=== PATIENT | female | born 1945 | race Two or more races ===

== ENCOUNTER 2025-06-05 21:46 | Inpatient (IN) | payer OTHER ==
[~2025-06-05] VITALS: Ht 149.9 cm; Wt 66.0 kg
--- NOTE | 2025-06-05 22:06 | ED.PDOC ---
HPI (NEURO) HPI Comments 80 year old female presents to the ED with a chief complaint of possible CVA onset today. Granddaughter states patient woke up around 06:00, around 11:00, she noticed patient began to be altered. Patient states she began experiencing Lt sided numbness/weakness, got worse throughout the day. About 30 minutes prior to ED arrival, granddaughter noticed patient had slurred speech, LT sided facial drooping, she was not able to walk normally, altered. PMHx HTN, DM, HLD. Denies fever, chills, nausea, vomiting, diarrhea, headache, chest pain. No other symptoms or modifying factors present at this time. Chief Complaint: Stroke Time Seen by MD: 21:55 Reviewed Notes: Medications, Allergies Information Source: Patient, Relative (GrandChild) Mode of Arrival: Ambulatory Severity: Moderate Timing: Hours Duration: Since onset Prehospital treatment: None Weakness Location: (L) Sided Numbness Location: (L) Sided Onset: At rest Circumstances: Spontaneous Symptoms: Weakness, Numbness, Slurred speech, Difficulty walking Before: Normal Associated Signs and Symptoms: Weakness, Numbness Past Medical History PAST MEDICAL HISTORY: DM, High Lipids, HTN Surgical History: Denies all surgeries PEPPER PICKER History: No Pertinent PEPPER PICKER History Family History Family History: Reviewed,noncontributory to illness, No family hx of Cancer, No family hx of DM, No family hx of Heart talita, No family hx of HTN, No family hx of Kidney talita, No family hx of Liver talita, No family hx of Lung talita, No family hx of Stroke Social History Smoker: Non-Smoker Alcohol: Denies ETOH Use Drugs: Denies Drug Use Lives In: Home Constitutional: denies: chills, diaphoresis, fatigue, fever, malaise, sweats, weakness, others EENTM: denies: blurred vision, double vision, ear bleeding, ear discharge, ear drainage, ear pain, ear ringing, eye pain, eye redness, hearing loss, mouth pain, mouth swelling, nasal discharge, nose bleeding, nose congestion, nose pain, photophobia, tearing, throat pain, throat swelling, voice changes, others Respiratory: denies: cough, hemoptysis, orthopnea, SOB at rest, shortness of breath, SOB with excertion, stridor, wheezing, others Cardiovascular: denies: chest pain, dizzy spells, diaphoresis, Dyspnea on exertion, edema, irregular heart beat, left arm pain, lightheadedness, palpitations, PND, syncope, others Gastrointestinal: denies: abdomen distended, abdominal pain, blood streaked bowels, constipated, diarrhea, dysphagia, difficulty swallowing, hematemesis, melena, nausea, poor appetite, poor fluid intake, rectal bleeding, rectal pain, vomiting, others Genitourinary: denies: abnormal vagina bleeding, burning, dyspareunia, dysuria, flank pain, frequency, hematuria, incontinence, pain, , vagina discharge, urgency, others Neurological: reports: left sided numbness, left sided weakness; denies: dizziness, fainting, headache, numbness, paresthesia, pre-existing deficit, right sided numbness, right sided weakness, seizure, speech problems, tingling, tremors, weakness, others Musculoskeletal: denies: back pain, gout, joint pain, joint swelling, muscle pain, muscle stiffness, neck pain, others Integumetry: denies: bruises, change in color, change in hair/nails, dryness, laceration, lesions, lumps, rash, wounds, others Allergic/Immunocompromised: denies: Difficulty Healing, Frequent Infections, Hives, Itching, others Hematologic/Lymphatic: denies: anemia, blood clots, easy bleeding, easy bruising, swollen glands, others Endocrine: denies: excessive hunger, excessive sweating, excessive thirst, excessive urination, flushing, intolerance to cold, intolerance to heat, unexplained weight gain, unexplained weight loss, others Psychiatric: denies: anxiety, bipolar disorder, depression, hopeless, panic disorder, schizophrenia, sleepless, suicidal, others All Other Systems: Reviewed and Negative Physical Exam General Appearance: Normal HEENT: Normal ENT Inspection, Pharynx Normal, TMs Normal Neck: Full Range of Motion, Non-Tender, Normal, Normal Inspection Respiratory: Chest Non-Tender, Lungs Clear, No Accessory Muscle Use, No R espiratory Distress, Normal Breath Sounds Cardiovascular: No Edema, No JVD, No Murmur, No Gallop, Normal Peripheral Pulses, Regular Rate/Rhythm Breast Exam: Deferred Gastrointestinal: No Organomegaly, Non Tender, No Pulsatile Mass, Normal Bowel Sounds, Soft Genitalia: Deferred Pelvic: Deferred Rectal: Deferred Extremities: No calf tenderness, Normal capillary refill, Normal inspection, Normal range of motion, Non-tender, No pedal edema Musculoskeletal : Apperance: Normal Neurologic: Alert, Other (LT sided weakness, drooping) Cerebellar Function: Normal Reflexes: Normal Skin: Dry, Normal Color, Warm Lymphatic: No Adenopathy Was a procedure done? Was a procedure done?: No Differential Diagnosis (SZ) Seizure: N/A CVA: CVA, Electrolyte Imbalance, Encephalopathy, Hypoxemia, SAH, TIA General Weakness: Anemia, CVA, Electrolyte imbalance, Hypotension, Hypovolemia Headache: N/A X-Ray, Labs, Meds, VS Vital Signs Date Time Temp Pulse Resp B/P (MAP) Pulse Ox O2 Delivery O2 Flow Rate FiO2 06/05/25 22:55 73 06/05/25 21:50 99.7 76 16 133/64 95 99.7 Lab Test 06/05/25 22:32 06/05/25 21:17 Range/Units Troponin I High Sensitivity 5 6 </=34 ng/L White Blood Count 11.3 H 4.4-10.8 10^3/uL Red Blood Count 4.49 4.0-5.20 10^6/uL Hemoglobin 13.1 12.2-16.2 g/dL Hematocrit 37.5 36.0-46.0 % Mean Corpuscular Volume 83.6 80.0-100.0 fL Mean Corpuscular Hemoglobin 29.1 28.0-32.0 pg Mean Corpuscular Hemoglobin Concent 34.8 32.0-36.0 g/dL Red Cell Distribution Width 13.0 11.8-14.3 % Platelet Count 222 140-450 10^3/uL Mean Platelet Volume 8.0 6.9-10.8 fL Neutrophils (%) (Auto) 67.5 37.0-80.0 % Lymphocytes (%) (Auto) 20.9 10.0-50.0 % Monocytes (%) (Auto) 6.9 0.0-12.0 % Eosinophils (%) (Auto) 3.5 0.0-7.0 % Basophils (%) (Auto) 1.2 0.0-2.0 % Neutrophils # (Auto) 7.6 1.6-8.6 10 ^3/uL Lymphocytes # (Auto) 2.4 0.4-5.4 10 ^3/uL Monocytes # (Auto) 0.8 0-1.3 10 ^3/uL Eosinophils # (Auto) 0.4 0-0.8 10 ^3/uL Basophils # (Auto) 0.1 0-0.2 10 ^3/uL Nucleated Red Blood Cells 0.1 % Prothrombin Time 10.2 9.3-11.8 sec Prothrombin Time INR 0.96 0.9-1.15 Activated Partial Thromboplast Time 24.7 24.5-34.5 SEC Sodium Level 143 136-145 mmol/L Potassium Level 3.8 3.5-5.1 mmol/L Chloride Level 108 H 98-107 mmol/L Carbon Dioxide Level 27 20-31 mmol/L Anion Gap 8 5-15 Blood Urea Nitrogen 22 9-23 mg/dL Creatinine 0.97 0.550-1.02 mg/dL Glomerular Filtration Rate Calc 59 >90 mL/min BUN/Creatinine Ratio 22.7 H 10.0-20.0 Serum Glucose 147 H 74-106 mg/dL Calcium Level 8.5 L 8.7-10.4 mg/dL Magnesium Level 1.8 1.6-2.6 mg/dL Total Bilirubin 1.1 H 0.2-1.0 mg/dL Aspartate Amino Transferase (AST) 25 13-40 U/L Alanine Aminotransferase (ALT) 23 7-40 U/L Alkaline Phosphatase 109 46-116 U/L B-Type Natriuretic Peptide 51.32 0-100 pg/mL Total Protein 6.0 5.7-8.2 g/dL Albumin 3.8 3.2-4.8 g/dL Time of 1ST Reevaluation: 22:25 Reevaluation 1ST: Unchanged Patient Education/Counseling: Diagnosis, Treatment, Prognosis Family Education/Counseling: Diagnosis, Treatment, Prognosis Departure 1 Departure Time of Disposition: 00:46 (Patient presented with left-sided weakness and slurred speech. Patient is out of the window for intervention. CT head shows an old stroke. We will admit patient for further workup and expert consulta tion) Impression: Primary Impression: Slurred speech Additional Impressions: Facial droop Left-sided weakness Disposition: ADMITTED INPATIENT Admit to: Tele Condition: Guarded Critical Care Note Critical Care Time?: Yes Critical care comment: Concern for CVA Authorized and Performed by: Anila Herrera MD Total critical care time: Approximately 37 minutes Due to a high probability of clinically significant, life threatening de terioration, the patient required my highest level of preparedness to intervene emergently and I personally spent this critical care time directly and personally managing the patient. This critical care time included obtaining a history; examining the patient; pulse oximetry; ordering and review of studies; arranging urgent treatment with development of a management plan; evaluation of patient's response to treatment; frequent reassessment; and, discussions with other providers. This critical care time was performed to assess and manage the high probability of imminent, life-threatening deterioration that could result in multi-organ failure. It was exclusive of separately billable procedures and treating other patients and teaching time. Please see my other sections and the rest of the note for further information on patient assessment and treatment. Stability Stability form required: No I personally scribed for ANILA HERRERA MD ([email or web address]) on 06/05/25 at 22:06. Electronically submitted by Kiana Tran ([email or web address]). ANILA HERRERA MD Jun 05, 2025 22:06
[2025-06-05 22:27] LABS: Hematocrit 37.5 % (36.0-46.0); Hemoglobin 13.1 g/dL (12.2-16.2); Mean Corpuscular Hemoglobin 29.1 pg (28.0-32.0); Mean Corpuscular Volume 83.6 fL (80.0-100.0); Nucleated Red Blood Cells % 0.1 %
[2025-06-05 22:41] LABS: INR 0.96 (0.9-1.15); Partial Thromboplastin Time 24.7 SEC (24.5-34.5); Prothrombin Time 10.2 sec (9.3-11.8)
[2025-06-05 22:45] LABS: Alanine Aminotransferase 23 U/L (7-40); Albumin 3.8 g/dL (3.2-4.8); Alkaline Phosphatase 109 U/L (46-116); Anion Gap 8 (5-15); BUN/Creatinine Ratio 22.7 (10.0-20.0); Blood Urea Nitrogen 22 mg/dL (9-23); Carbon Dioxide 27 mmol/L (20-31); Magnesium 1.8 mg/dL (1.6-2.6); Potassium 3.8 mmol/L (3.5-5.1); Sodium 143 mmol/L (136-145); Total Protein 6.0 g/dL (5.7-8.2)
[2025-06-05 22:46] LABS: Bilirubin, Total 1.1 mg/dL (0.2-1.0)
--- NOTE | 2025-06-05 22:51 | DVH ---
EXAM: XY CHEST XRAY 1 VIEW CLINICAL HISTORY: weakness TECHNIQUE: Single AP view of the chest WID: COMPARISON: None FINDINGS: Lines and tubes: Surgical clips project over the left lateral chest wall. Chest: Normal-sized heart. Calcified plaque projects over the aortic arch. No pleural effusion or pneumothorax. Linear opacity in the left lung base which could reflect atelect asis or scarring. The osseous structures are grossly intact. Degenerative changes of the bilateral shoulders. IMPRESSION: 1. No acute cardiopulmonary abnormality.
--- NOTE | 2025-06-05 22:57 | DVH ---
EXAM: CT STROKE CTH INDICATION: facial droop and weakness TECHNIQUE: CT of the head without intravenous contrast. Radiation Dose Information: CT Dose: CTDI volume is 52.58 mGy. Dose-length product is 1.71 mGy*cm The dose indicators for CT are the volume Computed Tomography (CT) Dose Index (CTDIvol) and the Dose Length Product (DLP), and are measured in units of mGy and mGy-cm, respectively. These indicators are not patient dose, but values generated from the CT scanner acquisition factors. The report includes radiation exposure data for exposures received during this examination. COMPARISON: None FINDINGS: There is no evidence of acute intracranial hemorrhage, extra-axial collection, mass effect, midline s hift, herniation or hydrocephalus. There is a 6 7 mm hypodense area in the medulla on the left series 2 image 19. This may represent a s mall infarct. Small areas of decreased attenuation deep white matter in the parietal lobe on the left The ventricles, sulci and cisterns are age appropriate. The conner-white differentiation is intact. Patchy periventricular and subcortical white matter hypoattenuation is nonspecific but may be related to small vessel ischemic disease. The visualized paranasal sinuses and mastoid air cells are clear. The surrounding soft tissues and osseous structures are unremarkable. IMPRESSION: 1. 6-7 mm old infarct in the brainstem on the left series 2 image 19. 2. No acute intracranial hemorrhage. 3. No findings territorial ischemia.
[2025-06-05 22:59] LABS: Calcium 8.5 mg/dL (8.7-10.4); Chloride 108 mmol/L (98-107); Glucose 147 mg/dL (74-106)
--- NOTE | 2025-06-06 06:10 | ECG ---
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
[2025-06-06] MEDS ORDERED: NITROGLYCERIN 0.4 MG SL TAB SL PRN (06:15)
[2025-06-06] MEDS ORDERED: MORPHINE SULFATE INJ 2 MG/ml SYRG IV PRN (06:15)
[2025-06-06] MEDS ORDERED: DEXTROSE (50%) 50ML SYRG IV PRN (06:30)
--- NOTE | 2025-06-06 06:30 | DVHHP2 ---
Admitting Diagnosis: CVA History of Present Illness HPI 80 y.o. female with DM, HTn, obesity was brought to the ER c/o left face droop and left body numbness and weakness, difficulty ambulating, altered mentation, slurred speech that started in AM and worsened later, urging the patient to come to the ER. Past Medical History Cardiac: HTN, Hyperlipidemia Endocrine: NIDDM Review of Systems Psychiatric: Change in speech, Numbness, Weakness H&P Exam Vital Signs Vital Signs Date Time Temp Pulse Resp B/P (MAP) Pulse Ox O2 Delivery O2 Flow Rate FiO2 06/06/25 01:01 63 06/05/25 21:50 99.7 16 133/64 95 99.7 General Appeara: Obese Head Exam: Normal inspection Neck Exam: Non-tender Eye Exam: bilateral eye PERRL, bilateral eye EOMI Pulmonary/Respiratory: Lungs clear Cardiovascular/Chest: Regular rate Tendon/ Neuro: Motor deficit Motor/Sensory: Weak motor strength LUE, Weak motor strength LLE Neuro/Mental St: Alert SEPSIS Sepsis Screen Date sepsis recognized/suspect: Jun 05, 2025 Time Sepsis recognized/suspect: 2156 Recent Procedure: No On Antibiotic Therapy: No Respiratory Rate >20: No Heart Rate >90: No Temp<36 C (96.8 F) or >38.3 C: No SBP <90 or MAP <65 mmHG: No New Acute Mental Status Change: Yes Is the patient on CPAP, BIPAP,: No Physician Orders Admit (06/06/25 06:09) Complete Blood Count (06/07/25 06:00) Comprehensive Metabolic Panel (06/07/25 06:00) Urinalysis (06/06/25 06:09) Echo 2d Mode Cardiac Dop (06/06/25 06:09) Nitroglycerin Sublingual (Ntrostat Subli (06/06/25 06:15) Morphine Sulfate Injection (06/06/25 06:15) Stat Ekg For Chest Pain (06/06/25 06:09) Notify Of Changes From Base (06/06/25 06:09) Qa Specialist For 24 Hours (06/06/25 06:09) Emergency Dysrhythmia Protocol (06/06/25 06:09) Rhythm Strips Once Every Shift (06/06/25 06:09) Oxygen By Nasal Cannula (06/06/25 06:09) * Neurology Consult (06/06/25 06:16) Brain Head Wo Contrast (06/06/25 06:17) Vital Signs Date Time Temp Pulse Resp B/P (MAP) Pulse Ox O2 Delivery O2 Flow Rate FiO2 06/06/25 01:01 63 06/05/25 22:55 73 Laboratory Tests Test 06/05/25 21:17 White Blood Count 11.3 10^3/uL (4.4-10.8) H Labs/Xrays Labs Test 06/05/25 22:32 06/05/25 21:17 Range/Units Troponin I High Sensitivity 5 </=34 ng/L White Blood Count 11.3 H 4.4-10.8 10^3/uL Red Blood Count 4.49 4.0-5.20 10^6/uL Hemoglobin 13.1 12.2-16.2 g/dL Hematocrit 37.5 36.0-46.0 % Mean Corpuscular Volume 83.6 80.0-100.0 fL Mean Corpuscular Hemoglobin 29.1 28.0-32.0 pg Mean Corpuscular Hemoglobin Concent 34.8 32.0-36.0 g/dL Red Cell Distribution Width 13.0 11.8-14.3 % Platelet Count 222 140-450 10^3/uL Mean Platelet Volume 8.0 6.9-10.8 fL Neutrophils (%) (Auto) 67.5 37.0-80.0 % Lymphocytes (%) (Auto) 20.9 10.0-50.0 % Monocytes (%) (Auto) 6.9 0.0-12.0 % Eosinophils (%) (Auto) 3.5 0.0-7.0 % Basophils (%) (Auto) 1.2 0.0-2.0 % Neutrophils # (Auto) 7.6 1.6-8.6 10 ^3/uL Lymphocytes # (Auto) 2.4 0.4-5.4 10 ^3/uL Monocytes # (Auto) 0.8 0-1.3 10 ^3/uL Eosinophils # (Auto) 0.4 0-0.8 10 ^3/uL Basophils # (Auto) 0.1 0-0.2 10 ^3/uL Nucleated Red Blood Cells 0.1 % Prothrombin Time 10.2 9.3-11.8 sec Prothrombin Time INR 0.96 0.9-1.15 Activated Partial Thromboplast Time 24.7 24.5-34.5 SEC Sodium Level 143 136-145 mmol/L Potassium Level 3.8 3.5-5.1 mmol/L Chloride Level 108 H 98-107 mmol/L Carbon Dioxide Level 27 20-31 mmol/L Anion Gap 8 5-15 Blood Urea Nitrogen 22 9-23 mg/dL Creatinine 0.97 0.550-1.02 mg/dL Glomerular Filtration Rate Calc 59 >90 mL/min BUN/Creatinine Ratio 22.7 H 10.0-20.0 Serum Glucose 147 H 74-106 mg/dL Calcium Level 8.5 L 8.7-10.4 mg/dL Magnesium Level 1.8 1.6-2.6 mg/dL Total Bilirubin 1.1 H 0.2-1.0 mg/dL Aspartate Amino Transferase (AST) 25 13-40 U/L Alanine Aminotransferase (ALT) 23 7-40 U/L Alkaline Phosphatase 109 46-116 U/L B-Type Natriuretic Peptide 51.32 0-100 pg/mL Total Protein 6.0 5.7-8.2 g/dL Albumin 3.8 3.2-4.8 g/dL Assessment/Plan Problem List: (1) CVA (cerebral vascular accident) (2) DM (diabetes mellitus) (3) HTN (hypertension) Plan MRI, neuro consult, ECHO, carotid doppler Plan discussed with: Patient, Daughter JULES ROMANO MD Jun 06, 2025 06:30
--- NOTE | 2025-06-06 06:51 | ECG ---
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
[2025-06-06] MEDS: ACCU-CHEK COMFORT CURVE STRIP VI SCH (07:48)
[2025-06-06] MEDS: InsuLIN REG 1unit/0.01ml Soln (100units/ml) SC SCH (07:53)
[2025-06-06 08:49] LABS: Urine Amorphous Crystal FEW /hpf (None Seen); Urine Protein, UAD Negative (Negative)
[2025-06-06 08:52] VITALS: O2SAT 96
--- NOTE | 2025-06-06 08:56 | DVH ---
Carotid Duplex Clinical History: CVA Comparison: None Technique: Duplex Doppler evaluation of the extracranial carotid and vertebral arteries including color Doppler and spectral/pulsed waveform analysis was performed. Findings: RIGHT SIDE: The peak systolic velocities are 79 cm/s in the CCA, 74 cm/s in the ICA. The ICA/CCA ratio is 0.9. The external carotid artery is patent with peak systolic velocity of 111 cm/s proximally. There is appropriate antegrade flow in the right vertebral artery. LEFT SIDE: The peak systolic velocities are 132 cm/s in the CCA, 145 cm/s in the ICA. The ICA/CCA ratio is 1.1. The external carotid artery is patent with peak systolic velocity of 122 cm/s proximally. There is appropriate antegrade flow in the left vertebral artery. IMPRESSION: Less than 50% stenosis of the right carotid artery system based on peak systolic velocity criteria an d presence of atheromatous plaque. 50-69% stenosis of the left internal carotid artery system based on peak systolic velocity criteria a nd presence of atherosclerotic plaque. Reference: Radiology 2003; 229:340-346 Normal ICA PSV is <125 cm/sec and no plaque or intimal thickening is visible sonographically addition al criteria include ICA/CCA PSV ratio <2.0 and ICA EDV <40 cm/sec <50% ICA stenosis ICA PSV is <125 cm/sec and plaque or intimal thickening is visible sonographically additional criteria include ICA/CCA PSV ratio <2.0 and ICA EDV <40 cm/sec 50-69% ICA stenosis ICA PSV is 125-230 cm/sec and plaque is visible sonographically additional criter ia include ICA/CCA PSV ratio of 2.0-4.0 and ICA EDV of 40-100 cm/sec 70% ICA stenosis but less than near occlusion ICA PSV is >230 cm/sec and visible plaque and luminal narrowing are seen at conner-scale and color Doppler ultrasound (the higher the Doppler parameters lie above the threshold of 230 cm/sec, the greater the likelihood of severe disease) additional criteria include ICA/CCA PSV ratio >4 and ICA EDV >100 cm/sec
[2025-06-06 09:00] VITALS: BP 130/70; PULSE 60; RESP 19; TEMP 97.7; O2SAT 99
--- NOTE | 2025-06-06 11:24 | DVH ---
EXAMINATION: MRI BRAIN HEAD WO CONTRAST INDICATION: CVA COMPARISON: CT scan of the head dated 06/05/25 TECHNIQUE: Multiplanar, multisequence magnetic resonance imaging of the brain was performed without the use of i ntravenous contrast. FINDINGS: No evidence of acute infarct. There is a chronic lacunar infarct in the kim. No intracranial hemorrh age. No mass effect. There is periventricular/deep white matter T2/FLAIR hyperintensity is nonspecific, but most commonly associated with chronic microvascular disease. The ventricles and sulci are normal in size for age. Clear basal cisterns. Flow voids in the major intracranial vessels are maintained. No abnormality of the orbits. Paranasal sinuses and mastoid air cells are clear. No abnormality of the visualized osseous structures and extracranial soft tissues. IMPRESSION: 1. No acute infarct, intracranial hemorrhage, mass effect, or hydrocephalus. HS:Y
[2025-06-06 13:00] VITALS: BP 123/54; PULSE 64; RESP 21; TEMP 97.2; O2SAT 98
[2025-06-06] MEDS: ATORVASTATIN 20 MG TAB PO SCH (15:57)
[2025-06-06 17:12] VITALS: BP 118/59; PULSE 66; RESP 17; TEMP 97.8; O2SAT 97
--- NOTE | 2025-06-06 20:53 | DVHINCON2 ---
Date of service: Jun 06, [address] Sahni Reason for Consultation CVA History of Present Illness Ms. Rao is a 80 years old right-handed female with a history of hypertension, diabetes, dyslipidemia, left breast cancer, she was brought to the [facility] [place] with a chief company of possible stroke onset on 06/05/2025. At this time, he is awake, oriented x3, she provided the following history In the morning on 06/05/2025, she developed confusion, slurred speech, and imbalance gait. She has paresthesia in the left upper extremity after her breast cancer surgery, she denies new paresthesia or weakness on 06/05/2025 but ER note mentioned the patient has a left facial drooping, and the left arm numbness She had stroke in 5-10 years ago which caused left-sided weakness, the patient was seen in the [facility] [place], and she was said to have stroke, she has a good recovery, she does not remember taking aspirin or any blood thinner for stroke prevention External reconciled medication includes Lipitor 20 mg daily, She denies a history of seizure She reports difficulty with memory Urinalysis, 06/06/2025: WBC: 5, urine leukocyte esterase: Trace WBC/HB/PLT/MCV, 06/05/2025: 11.3/13.1/222/83.6 TBI/AST/ALT/AP, 06/05/2025: 1.1/25/23/109 Carotid doctor, 06/06/2025: Less than 50% stenosis of the right carotid artery system based on peak systolic velocity criteria and presence of atheromatous plaque. 50-69% stenosis of the left internal carotid artery system based on peak systolic velocity criteria and presence of atherosclerotic plaque CT head, 06/05/2025: 1. 6-7 mm old infarct in the brainstem on the left series 2 image 19. 2. No acute intracranial hemorrhage. 3. No findings territorial ischemia MRI head, 06/06/2025: No acute infarct, intracranial hemorrhage, mass effect, or hydrocephalus. (There is a chronic lacunar infarct in the kim) Past Medical History Hypertension, diabetes, dyslipidemia, left breast cancer Past Surgical History Breast cancer resection, , appendectomy, bilateral Achilles tendon surgery, Family History: Arthritis G8 MOTHER Cardiovascular disease G8 MOTHER Diabetes mellitus G8 FATHER Family History Arthritis, diabetes, heart disease, mother had dementia She was tobacco smoke, but no history of drug/alcohol abuse As above, the other systems are negative Social History She was tobacco smoke, but no history of drug/alcohol abuse Allergies: Coded Allergies: NO KNOWN ALLERGIES (Unverified , 06/05/25) Current Medications Current Medications Medications (Trade) Dose Ordered Sig/Donaldo Route PRN Reason Start Time Stop Time Status Last Admin Nitroglycerin (Ntrostat Sublingual) 0.4 mg Q5MINP PRN SL FOR CHEST PAIN 06/06/25 06:15 Morphine Sulfate 2 mg Q30M PRN IV FOR CHEST PAIN 06/06/25 06:15 Diagnostic Test (Pha) (Accu-Chek Comfort Curve T) 1 strip ACHS 06/06/25 07:00 06/06/25 16:46 Insulin Human Regular (InsuLIN R) ACHS SC 06/06/25 07:00 Dextrose 50 ml UD PRN IV Blood Sugar LESS THAN 60 06/06/25 06:30 Atorvastatin Calcium (Lipitor) 80 mg DAILY PO 06/06/25 14:15 06/06/25 15:57 Aspirin 81 mg DAILY PO 06/06/25 14:15 06/06/25 15:57 Review of Systems As above, the other systems are negative Vital Signs Vital Signs Date Time Temp Pulse Resp B/P (MAP) Pulse Ox O2 Delivery O2 Flow Rate FiO2 06/06/25 17:12 97.8 66 17 118/59 (78) 97 97.8 06/06/25 08:52 Room Air* 0 21 Physical Exam GENERAL EXAM: General: the patient is well developed and nourished. No acute distress. HEENT: Normocephalic, neck is supple, no carotid bruits. No mass RESPIRATORY: Normal respiratory effort with symmetrical lung expansion. Lungs clear to auscultation. CARDIOVASCULAR: Regular rate and rhythm with no murmurs. S1, S2. ABDOMEN: Soft, nontender, normal bowel sound NEUROLOGICAL: MENTAL STATUS: Awake and alert. Oriented to person, place, time and general circumstances. Able to give personal history. SPEECH, LANGUAGE, HIGHER CORTICAL FUNCTION: no aphasia or dysathria. CRANIAL NERVES: #2: Intact visual dela cruz to confrontation. The optic discs were sharp. Retinal background was uniformly pink in appearance. There was no hemorrhages or exudates. #3,4,6: Pupils are equal, round and reactive. EOMs full and conjugate. Mild bilateral gaze evoked nystagmus. #5: Facial sensation intact in all three divisions bilaterally. Mandibular strength intact. #7: Facial muscles symmetrical and strength intact. #8: Hearing grossly normal to voice. #9,10: Uvula and soft palate rise in the midline. Swallow and voice are normal. #11: Trapezius and sternomastoid strength intact bilaterally. #12: Tongue midline. No fasciculations or atrophy. SENSATION: Sensation to touch and pinprick is normal. MOTOR: Normal tone in the upper and lower extremity. Normal muscle bulk. No fasciculations. No abnormal movements or posturing. Muscle strength of the major groups in the upper extremities is 5/5. Muscle strength of the major groups in the lower extremities is 5/5. REFLEXES: Deep tendon reflexes normal and symmetrical. No pathological reflexes. CEREBELLAR/COORDINATION: Finger to nose and heel to gomez are normal bilaterally. GAIT/STATION: deferred. Labs/Diagnostic Data Labs Test 06/06/25 16:37 06/06/25 08:08 06/05/25 22:32 06/05/25 21:17 Range/Units POC Glucose 134 H 70-106 mg/dl Urine Color Yellow Yellow Urine Clarity Clear Clear Urine pH 8.0 5.0-9.0 Urine Specific [place] 1.021 1.001-1.035 Urine Protein Negative Negative Urine Ketones Negative Negative Urine Blood Negative Negative /uL Urine Nitrite Negative Negative Urine Bilirubin Negative Negative Urine Urobilinogen 12 H Negative mg/dL Urine Leukocyte Esterase Trace Negative /uL Urine RBC 1 0 - 4 /hpf Urine Microscopic WBC 5 0-5 /HPF Urine Squamous Epithelial Cells Few <5 /hpf Urine Amorphous Crystals Few None Seen /hpf Urine Bacteria None seen None Seen /hpf Urine Glucose 3+ H Normal mg/dL Troponin I High Sensitivity 5 </=34 ng/L White Blood Count 11.3 H 4.4-10.8 10^3/uL Red Blood Count 4.49 4.0-5.20 10^6/uL Hemoglobin 13.1 12.2-16.2 g/dL Hematocrit 37.5 36.0-46.0 % Mean Corpuscular Volume 83.6 80.0-100.0 fL Mean Corpuscular Hemoglobin 29.1 28.0-32.0 pg Mean Corpuscular Hemoglobin Concent 34.8 32.0-36.0 g/dL Red Cell Distribution Width 13.0 11.8-14.3 % Platelet Count 222 140-450 10^3/uL Mean Platelet Volume 8.0 6.9-10.8 fL Neutrophils (%) (Auto) 67.5 37.0-80.0 % Lymphocytes (%) (Auto) 20.9 10.0-50.0 % Monocytes (%) (Auto) 6.9 0.0-12.0 % Eosinophils (%) (Auto) 3.5 0.0-7.0 % Basophils (%) (Auto) 1.2 0.0-2.0 % Neutrophils # (Auto) 7.6 1.6-8.6 10 ^3/uL Lymphocytes # (Auto) 2.4 0.4-5.4 10 ^3/uL Monocytes # (Auto) 0.8 0-1.3 10 ^3/uL Eosinophils # (Auto) 0.4 0-0.8 10 ^3/uL Basophils # (Auto) 0.1 0-0.2 10 ^3/uL Nucleated Red Blood Cells 0.1 % Prothrombin Time 10.2 9.3-11.8 sec Prothrombin Time INR 0.96 0.9-1.15 Activated Partial Thromboplast Time 24.7 24.5-34.5 SEC Sodium Level 143 136-145 mmol/L Potassium Level 3.8 3.5-5.1 mmol/L Chloride Level 108 H 98-107 mmol/L Carbon Dioxide Level 27 20-31 mmol/L Anion Gap 8 5-15 Blood Urea Nitrogen 22 9-23 mg/dL Creatinine 0.97 0.550-1.02 mg/dL Glomerular Filtration Rate Calc 59 >90 mL/min BUN/Creatinine Ratio 22.7 H 10.0-20.0 Serum Glucose 147 H 74-106 mg/dL Calcium Level 8.5 L 8.7-10.4 mg/dL Magnesium Level 1.8 1.6-2.6 mg/dL Total Bilirubin 1.1 H 0.2-1.0 mg/dL Aspartate Amino Transferase (AST) 25 13-40 U/L Alanine Aminotransferase (ALT) 23 7-40 U/L Alkaline Phosphatase 109 46-116 U/L B-Type Natriuretic Peptide 51.32 0-100 pg/mL Total Protein 6.0 5.7-8.2 g/dL Albumin 3.8 3.2-4.8 g/dL Assessment Altered mental status, confusion, slurred speech ? TIA ? Partial complex seizure Chronic stroke with good recovery Self reports memory difficulty Plan/Recommendation Monitoring Supportive treatment Telemetry Vitamin B12, folic acid, TSH EEG Lipitor profile Echocardiogram Carotid Doppler Aspirin 81 mg daily Lipitor 80 mg daily Keep mentally and physically active More recommendation per clinical course This medical document was created using an electronic medical record system with [employer] dictation system. Although this document has been carefully reviewed, there may still be some phonetic and typographical errors. These areas are purely typographical due to imperfections of the software programs, and do not reflect any compromise in the patient's medical care. Plan discussed with: Patient, Other JANNET SAN MD Jun 06, 2025 20:53
[2025-06-06 20:55] VITALS: BP 93/36; PULSE 73; RESP 20; TEMP 98.2; O2SAT 95
[2025-06-06 21:00] VITALS: BP 124/57; PULSE 74; RESP 18; TEMP 97.9; O2SAT 95
[2025-06-07 01:00] VITALS: BP 124/68; PULSE 73; RESP 20; TEMP 98.3; O2SAT 95
[2025-06-07 05:00] VITALS: BP 112/63; PULSE 66; RESP 20; TEMP 98.2; O2SAT 95
[2025-06-07 06:20] LABS: Hematocrit 38.3 % (36.0-46.0); Hemoglobin 13.1 g/dL (12.2-16.2); Mean Corpuscular Hemoglobin 28.8 pg (28.0-32.0); Mean Corpuscular Volume 84.5 fL (80.0-100.0); Nucleated Red Blood Cells % 0.1 %
[2025-06-07 06:41] LABS: Free T4 (Free Thyroxine) 1.51 ng/dL (0.89-1.76)
[2025-06-07 06:42] LABS: Alanine Aminotransferase 21 U/L (7-40); Alkaline Phosphatase 102 U/L (46-116); Anion Gap 9 (5-15); BUN/Creatinine Ratio 14.9 (10.0-20.0); Blood Urea Nitrogen 13 mg/dL (9-23); Carbon Dioxide 24 mmol/L (20-31); Potassium 4.1 mmol/L (3.5-5.1); Sodium 141 mmol/L (136-145)
[2025-06-07 06:43] LABS: Total Protein 5.9 g/dL (5.7-8.2)
[2025-06-07 06:44] LABS: Albumin 3.8 g/dL (3.2-4.8); Bilirubin, Total 1.0 mg/dL (0.2-1.0)
[2025-06-07 06:46] LABS: Calcium 8.5 mg/dL (8.7-10.4); Chloride 108 mmol/L (98-107); Glucose 147 mg/dL (74-106)
[2025-06-07 07:06] LABS: Triglycerides 97 mg/dL (< 150)
[2025-06-07 07:08] LABS: Cholesterol 111 mg/dL (< 200); HDL Cholesterol 56 mg/dL (40-59)
[2025-06-07 09:00] VITALS: BP 127/68; PULSE 71; RESP 17; TEMP 98.4; O2SAT 93
--- NOTE | 2025-06-07 11:40 | DVHPN2 ---
Progress Note - Dictate Date Seen: Jun 07, 2025 Medical Necessity Reason Pt with a Central, PICC or Fol: No Subjective Ms. Rao is a 80 years old right-handed female with a history of hypertension, diabetes, dyslipidemia, left breast cancer, she was brought to the [facility] with a chief company of possible stroke onset on 06/05/2025. Patient was seen examined, doing fine, no new problems The case was discussed with Dr. Sahni, I recommended ASA 81mg Qd, Lipitor 20mg Qd, ok to d/c if TTE is fine Urinalysis, 06/06/2025: WBC: 5, urine leukocyte esterase: Trace WBC/HB/PLT/MCV, 06/05/2025: 11.3/13.1/222/83.6 TBI/AST/ALT/AP, 06/05/2025: 1.1/25/23/109 TG/HDL/LDL/HDL, 06/07/2025: 97/111/42/56 Vitamin B12, 06/2025:316 Folic acid, 06/07/2025: 20.73 TSH, 06/07/2025: 0.01 FT4, 06/07/2025: 1.51 Carotid doctor, 06/06/2025: Less than 50% stenosis of the right carotid artery system based on peak systolic velocity criteria and presence of atheromatous plaque. 50-69% stenosis of the left internal carotid artery system based on peak systolic velocity criteria and presence of atherosclerotic plaque CT head, 06/05/2025: 1. 6-7 mm old infarct in the brainstem on the left series 2 image 19. 2. No acute intracranial hemorrhage. 3. No findings territorial ischemia MRI head, 06/06/2025: No acute infarct, intracranial hemorrhage, mass effect, or hydrocephalus. (There is a chronic lacunar infarct in the kim) vital signs Vital Sign Date Time Temp Pulse Resp B/P (MAP) Pulse Ox O2 Delivery O2 Flow Rate FiO2 06/07/25 09:00 98.4 71 17 127/68 (87) 93 98.4 06/07/25 08:00 Room Air* 0 21 medications Current Medications Medications Dose Ordered Sig/Donaldo Route Start Time Stop Time Status Last Admin Dose Admin Nitroglycerin 0.4 mg Q5MINP PRN SL 06/06/25 06:15 Morphine Sulfate 2 mg Q30M PRN IV 06/06/25 06:15 Diagnostic Test (Pha) 1 strip ACHS 06/06/25 07:00 06/07/25 05:49 1 STRIP Insulin Human Regular ACHS SC 06/06/25 07:00 06/07/25 05:49 2 UNITS Dextrose 50 ml UD PRN IV 06/06/25 06:30 Atorvastatin Calcium 80 mg DAILY PO 06/06/25 14:15 06/07/25 08:48 80 MG Aspirin 81 mg DAILY PO 06/06/25 14:15 06/07/25 08:47 81 MG objective General: the patient is well developed and nourished. No acute distress. MENTAL STATUS: Awake and alert. Oriented to person, place, time and general circumstances. Able to give personal history. SPEECH, LANGUAGE, HIGHER CORTICAL FUNCTION: no aphasia or dysathria. CRANIAL NERVES: Pupils are equal, round and reactive. EOMs full and conjugate. No nystagmus. Facial sensation intact in all three divisions bilaterally. Mandibular strength intact. Facial muscles symmetrical and strength intact. SENSATION: Sensation to touch and pinprick is normal. MOTOR: Normal tone in the upper and lower extremity. Normal muscle bulk. No fasciculations. No abnormal movements or posturing. Muscle strength of the major groups in the extremities is 5/5. REFLEXES: Deep tendon reflexes normal and symmetrical. No pathological reflexes. CEREBELLAR/COORDINATION: Finger to nose and heel to gomez are normal bilaterally. GAIT/STATION: deferred. laboratory and microbiology Laboratory Tests 06/07/25 05:21 Test 06/07/25 05:21 Range/Units Serum Glucose 147 H 74-106 mg/dL Problem List Altered mental status, confusion, slurred speech ? TIA ? Partial complex seizure Chronic stroke with good recovery Self reports memory difficulty Assessment/Plan Monitoring Supportive treatment Telemetry Echocardiogram Aspirin 81 mg daily Lipitor 20 mg daily Keep mentally and physically active More recommendation per clinical course This medical document was created using an electronic medical record system with [employer] dictation system. Although this document has been carefully reviewed, there may still be some phonetic and typographical errors. These areas are purely typographical due to imperfections of the software programs, and do not reflect any compromise in the patient's medical care. Prognosis poor Plan discussed with: Other JANNET SAN MD Jun 07, 2025 11:40
[2025-06-07] MEDS ORDERED: LORazepam 0.5 MG TAB PO ONE (11:45)
[2025-06-07] MEDS ORDERED: PRED20TA2 PO (12:10)
[2025-06-07] MEDS ORDERED: AMLO1TAB21 PO (12:10)
[2025-06-07] MEDS ORDERED: AMOX500T92 PO (12:10)
[2025-06-07] MEDS ORDERED: ALEN70TA74 PO (12:10)
[2025-06-07] MEDS ORDERED: SENN-58 PO (12:10)
[2025-06-07] MEDS ORDERED: LETR2.5T6 PO (12:10)
[2025-06-07] MEDS ORDERED: ATOR20TA50 PO (12:10)
--- NOTE | 2025-06-07 12:15 | DVHSR ---
APPROVED REPORT EXAM: Two-dimensional and M-mode echocardiogram with Doppler and color Doppler. Blood Pressure: 112/63 mmHg INDICATION CVA/TIA: RISK FACTORS Height: 4'11", Weight: 145 DIMENSIONS LVDd4.0 (3.8-5.7cm)LA (2D)4.1 (1.9-4.0cm)Aortic Root2.8 (2.0-3.7cm) LVDs2.5 (2.5-4.0cm)LA (MM) (1.9-4.0cm)Aortic Cusp Exc1.6 (1.5-2.0cm) EF (%) 68.0 (55-70%)Rt. Atrium3.1 (1.9-4.0cm)Asc. Aorta2.9 cm IVSd1.0 (0.7-1.1cm)RV (D)3.4 (1.8-2.4cm) PWd0.9 (0.7-1.1cm) Mitral Valve MitralMitral Stenosis E wave0.86m/sMV Mean GR.mmHg A wave1.09m/sMV Peak GR.mmHg E/A ratio0.82D MVAcm2 DECEL [id number] 1/2 Timems Aortic Valve Aortic ValveAortic Stenosis V11.05m/Macy Mean GR.6mmHg V21.55m/Macy Peak GR.10mmHg LVOT Diameter2.1 (1.8-2.4cm)Doppler AVA2.35cm2 Other Information Quality : Technically LimitedRhythm : Technically limited study due to body habitus. Conclusion lvef 50% mild to moderate LVH RV not well seen left atrium enlarged no severe valve abnormalities noted limited study
[2025-06-07 13:00] VITALS: BP 117/64; PULSE 69; RESP 17; TEMP 98.2; O2SAT 94
--- NOTE | 2025-06-07 13:53 | DVHDS2 ---
Discharge Summary Date of Admission Jun 06, 2025 at 06:09 Date of Discharge: Jun 07, 2025 Labs/Diagnostic Data: Laboratory Results Test 06/07/25 10:57 06/07/25 05:21 06/06/25 08:08 06/05/25 22:32 POC Glucose 152 mg/dl (70-106) White Blood Count 9.5 10^3/uL (4.4-10.8) Red Blood Count 4.53 10^6/uL (4.0-5.20) Hemoglobin 13.1 g/dL (12.2-16.2) Hematocrit 38.3 % (36.0-46.0) Mean Corpuscular Volume 84.5 fL (80.0-100.0) Mean Corpuscular Hemoglobin 28.8 pg (28.0-32.0) Mean Corpuscular Hemoglobin Concent 34.1 g/dL (32.0-36.0) Red Cell Distribution Width 13.0 % (11.8-14.3) Platelet Count 208 10^3/uL (140-450) Mean Platelet Volume 8.3 fL (6.9-10.8) Neutrophils (%) (Auto) 70.4 % (37.0-80.0) Lymphocytes (%) (Auto) 18.0 % (10.0-50.0) Monocytes (%) (Auto) 8.0 % (0.0-12.0) Eosinophils (%) (Auto) 3.2 % (0.0-7.0) Basophils (%) (Auto) 0.4 % (0.0-2.0) Neutrophils # (Auto) 6.7 10 ^3/uL (1.6-8.6) Lymphocytes # (Auto) 1.7 10 ^3/uL (0.4-5.4) Monocytes # (Auto) 0.8 10 ^3/uL (0-1.3) Eosinophils # (Auto) 0.3 10 ^3/uL (0-0.8) Basophils # (Auto) 0 10 ^3/uL (0-0.2) Nucleated Red Blood Cells 0.1 % Sodium Level 141 mmol/L (136-145) Potassium Level 4.1 mmol/L (3.5-5.1) Chloride Level 108 mmol/L (98-107) Carbon Dioxide Level 24 mmol/L (20-31) Anion Gap 9 (5-15) Blood Urea Nitrogen 13 mg/dL (9-23) Creatinine 0.87 mg/dL (0.550-1.02) Glomerular Filtration Rate Calc 67 mL/min (>90) BUN/Creatinine Ratio 14.9 (10.0-20.0) Serum Glucose 147 mg/dL (74-106) Calcium Level 8.5 mg/dL (8.7-10.4) Total Bilirubin 1.0 mg/dL (0.2-1.0) Aspartate Amino Transferase (AST) 23 U/L (13-40) Alanine Aminotransferase (ALT) 21 U/L (7-40) Alkaline Phosphatase 102 U/L (46-116) Total Protein 5.9 g/dL (5.7-8.2) Albumin 3.8 g/dL (3.2-4.8) Triglycerides Level 97 mg/dL (< 150) Cholesterol Level 111 mg/dL (< 200) LDL Cholesterol 42 mg/dL (< 100) HDL Cholesterol 56 mg/dL (40-59) Vitamin B12 Level 316 pg/mL (211-911) Folic Acid 20.73 ng/mL (>5.38) Thyroid Stimulating Hormone (TSH) 0.01 uIU/mL (0.55-4.78) Free Thyroxine (T4) Calculated 1.51 ng/dL (0.89-1.76) Urine Color Yellow (Yellow) Urine Clarity Clear (Clear) Urine pH 8.0 (5.0-9.0) Urine Specific [place] 1.021 (1.001-1.035) Urine Protein Negative (Negative) Urine Ketones Negative (Negative) Urine Blood Negative /uL (Negative) Urine Nitrite Negative (Negative) Urine Bilirubin Negative (Negative) Urine Urobilinogen 12 mg/dL (Negative) Urine Leukocyte Esterase Trace /uL (Negative) Urine RBC 1 /hpf (0 - 4) Urine Microscopic WBC 5 /HPF (0-5) Urine Squamous Epithelial Cells Few /hpf (<5) Urine Amorphous Crystals Few /hpf (None Seen) Urine Bacteria None seen /hpf (None Seen) Urine Glucose 3+ mg/dL (Normal) Troponin I High Sensitivity 5 ng/L (</=34) Test 06/05/25 21:17 Prothrombin Time 10.2 sec (9.3-11.8) Prothrombin Time INR 0.96 (0.9-1.15) Activated Partial Thromboplast Time 24.7 SEC (24.5-34.5) Magnesium Level 1.8 mg/dL (1.6-2.6) B-Type Natriuretic Peptide 51.32 pg/mL (0-100) Other Laboratory Tests 06/07/25 05:21 Brief Hx & Hospital Course: Patient is a usually 80-year-old female past medical history of hypertension, diabetes, hyperlipidemia, history of left breast cancer, history of CVA with left-sided weakness 5 to 10 years ago not currently on aspirin or Plavix who presents due to concerns of left facial droop, slurred speech and gait imbalance. Patient was admitted for stroke alert. CT brain without contrast was done which noted old infarcts in the brainstem on the left series in the kim area. There was no other acute abnormalities. This was followed up with a brain MRI which did not reveal any acute infarct intracranial hemorrhage or mass effect. Carotid Doppler was done which did not reveal any significant carotid stenosis. TTE was done which was within normal limits with EF of 50%. Neurology evaluated the patient. They recommended patient be discharged on aspirin 81 mg daily, Lipitor 20 mg daily. Findings were consistent with possible TIA. Patient discharged to SNF for further physical therapy given increased weakness. Overall, patient discharged in stable condition. Condition at Discharge: Good Final Diagnosis/Problems List TIA Secondary Diagnosis: Type 2 DM History of CVA History of Breast Cancer Generalized Weakness Discharge Disposition: Group Home Facility Discharge Instruct/Medications Diet: Cardiac 2g Na,low cholest Activity: No Restrictions, As Tolerated Follow Up/Referral: Follow up with neurology. Scheduled Alendronate Sodium (Alendronate Sodium), 1 TAB PO QWEEKLY, (Reported) Amlodipine Besylate (Amlodipine Besylate), 2.5 MG PO DAILY, (Reported) Amoxicillin & Pot Clavulanate (Amoxicillin/Potassium Cla), 1 TAB PO BID, (Reported) Atorvastatin Calcium (Atorvastatin Calcium), 1 TAB PO DAILY, (Reported) Letrozole (Letrozole), 2.5 MG PO DAILY, (Reported) Prednisone (Prednisone), 20 MG PO BID, (Reported) Senna (Senokot), 8.6 MG PO HS, (Reported) Discharge Statement: "Patient was advised to return to the ER or call 911 if any headaches, dizziness, shortness of breath, chest pain, abdominal pain, bleeding, fevers, or worsening of medical condition. Patient was counseled about treatment plan, medications, possible side effects, patientverbalized understanding. All questions were answered to the best of my ability. This discharge took greater then 30 minutes in planning, reviewing documentation, counseling the patient, and discussing with other team members." ASSESSMENT ASSESSMENT Assessment TIA BECKY LIMON DO Jun 07, 2025 13:53
[2025-06-07] MEDS ORDERED: ASPI-325 PO (14:02)
[2025-06-07 14:51] VITALS: BP 117/64; PULSE 69; RESP 17; TEMP 98.2; O2SAT 94
== END 2025-06-07 15:57 | disposition home or self-care (01) | DRG 69 ==
LOC: ER 21:46 → OVERFLOW 06-06 06:09 → WEST WING 06-06 20:58
PROVIDERS: ADMIT Internal Medicine; ATTEND Internal Medicine
DX: G45.9 Transient cerebral ischemic attack, unspecified (principal); I69.354 Hemiplegia and hemiparesis following cerebral infarction affecting left non-dominant side; I10 Essential (primary) hypertension; E11.9 Type 2 diabetes mellitus without complications; E66.9 Obesity, unspecified; E78.5 Hyperlipidemia, unspecified; Z83.3 Family history of diabetes mellitus; Z85.3 Personal history of malignant neoplasm of breast; Z82.49 Family history of ischemic heart disease and other diseases of the circulatory system; Z81.8 Family history of other mental and behavioral disorders; Z79.899 Other long term (current) drug therapy; Z79.84 Long term (current) use of oral hypoglycemic drugs; Z79.82 Long term (current) use of aspirin; Z68.29 Body mass index [BMI] 29.0-29.9, adult
CPT/HCPCS: 36415; 70450; 70551; 71045; 80053; 80061; 81001; 82607; 82746; 82962; 83735; 83880; 84439; 84443; 84484; 85025; 85610; 85730; 93005; 93306; 93886; 97163; 99291; G0378; J1815

== ENCOUNTER 2025-07-01 18:09 | Inpatient (IN) | payer OTHER, MEDICAID ==
[~2025-07-01] VITALS: Ht 149.9 cm; Wt 70.5 kg
[~2025-07-01 18:09] MED LIST: ALEN70TA74 PO; AMLO1TAB21 PO; ASPI-325 PO; ATOR20TA50 PO; LETR2.5T6 PO; PRED20TA2 PO; SENN-58 PO
[2025-07-01] MEDS: ONDANSETRON HCL 4 MG/2 ML VIAL IV ONE (18:39)
[2025-07-01] MEDS: HYDROmorphone HCL 2 MG/ML VL/or syr IV ONE ×2 (18:41→20:52)
[2025-07-01 19:06] LABS: Hematocrit 40.9 % (36.0-46.0); Hemoglobin 14.5 g/dL (12.2-16.2); Mean Corpuscular Hemoglobin 29.3 pg (28.0-32.0); Mean Corpuscular Volume 82.6 fL (80.0-100.0); Nucleated Red Blood Cells % 0.1 %
--- NOTE | 2025-07-01 19:20 | ED.PDOC ---
History of Present Illness HPI Comments This patient is an 80-year-old [place]ian-speaking female who arrives the ED for evaluation of upper abdominal/lower chest pain that began earlier today in his increased throughout the day. Patient states she has a accompanying shortness a breath which may be due to the pain concerns. He does confirmed nausea and vomiting. Patient denies any history of cardiac or pulmonary issues. Patient denies any history of intra-abdominal concerns. Patient has a history of breast cancer. Patient was hypertensive on arrival. Chief Complaint: Shortness of Breath Time Seen by MD: 18:20 Reviewed Notes: Nurses Notes, Medications, Allergies Allergies: Coded Allergies: NO KNOWN ALLERGIES (Unverified , 06/05/25) Home Meds Active Scripts Aspirin (Aspirin Low Dose) 81 Mg Tab, 81 MG PO DAILY for 30 Days, #30 TAB 0 Refills Prov:BECKY LIMON DO 06/07/25 Reported Medications Alendronate Sodium (Alendronate Sodium) 70 Mg Tab, 1 TAB PO QWEEKLY, #4 TAB 3 Refills 06/07/25 Amlodipine Besylate (Amlodipine Besylate) 2.5 Mg Tab, 2.5 MG PO DAILY, TAB 06/07/25 Senna (Senokot) 8.6 Mg Tab, 8.6 MG PO HS, TAB 06/07/25 Prednisone (Prednisone) 20 Mg Tab, 20 MG PO BID, MG 06/07/25 Atorvastatin Calcium (ATORVASTATIN CALCIUM) 20 Mg Tab, 1 TAB PO DAILY, #30 TAB 5 Refills 06/07/25 Letrozole (LETROZOLE) 2.5 Mg Tab, 2.5 MG PO DAILY, TAB 06/07/25 Information Source: Patient, Friend Mode of Arrival: Ambulatory Severity: Moderate Timing: Hours Duration: Since onset Prehospital treatment: None Past Medical History PAST MEDICAL HISTORY: Cancer (breast cancer ), COPD, DM, High Lipids, HTN Surgical History: Denies all surgeries DIRECTOR OF CARDIOLOGY SERVICE LINE History: No Pertinent DIRECTOR OF CARDIOLOGY SERVICE LINE History Family History Family History: Reviewed,noncontributory to illness, No family hx of Cancer, No family hx of DM, No family hx of Heart talita, No family hx of HTN, No family hx ofKidney talita, No family hx of Liver talita, No family hx of Lung talita, No family hx of Stroke Social History Smoker: Non-Smoker Alcohol: Denies ETOH Use Drugs: Denies Drug Use Lives In: Home Constitutional: reports: weakness; denies: chills, diaphoresis, fatigue, fever, malaise, sweats, others EENTM: denies: blurred vision, double vision, ear bleeding, ear discharge, ear drainage, ear pain, ear ringing, eye pain, eye redness, hearing loss, mouth pain, mouth swelling, nasal discharge, nose bleeding, nose congestion, nose pain, photophobia, tearing, throat pain, throat swelling, voice changes, others Respiratory: denies: cough, hemoptysis, orthopnea, SOB at rest, shortness of breath, SOB with excertion, stridor, wheezing, others Cardiovascular: reports: chest pain; denies: dizzy spells, diaphoresis, Dyspnea on exertion, edema, irregular heart beat, left arm pain, lightheadedness, palpitations, PND, syncope, others Gastrointestinal: reports: abdominal pain, nausea, vomiting; denies: abdomen distended, blood streaked bowels, constipated, diarrhea, dysphagia, difficulty swallowing, hematemesis, melena, poor appetite, poor fluid intake, rectal ble eding, rectal pain, others Genitourinary: denies: abnormal vagina bleeding, burning, dyspareunia, dysuria, flank pain, frequency, hematuria, incontinence, pain, , vagina discharge, urgency, others Neurological: denies: dizziness, fainting, headache, left sided numbness, left sided weakness, numbness, paresthesia, pre-existing deficit, right sided numbness, right sided weakness, seizure, speech problems, tingling, tremors, weakness, others Musculoskeletal: denies: back pain, gout, joint pain, joint swelling, muscle pain, muscle stiffness, neck pain, others Integumetry: denies: bruises, change in color, change in hair/nails, dryness, laceration, lesions, lumps, rash, wounds, others Allergic/Immunocompromised: denies: Difficulty Healing, Frequent Infections, Hives, Itching, others Hematologic/Lymphatic: denies: anemia, blood clots, easy bleeding, easy bruising, swollen glands, others Endocrine: denies: excessive hunger, excessive sweating, excessive thirst, excessive urination, flushing, intolerance to cold, intolerance to heat, unexplained weight gain, unexplained weight loss, others Psychiatric: denies: anxiety, bipolar disorder, depression, hopeless, panic disorder, schizophrenia, sleepless, suicidal, others All Other Systems: Reviewed and Negative (Comprehensive review of systems are negative unless stated in HPI) Physical Exam General Appearance: Moderate Distress (Ueofkjck-pd-obrhca distress due to upper abdominal pain.), Normal HEENT: Normal ENT Inspection, Pharynx Normal, TMs Normal Neck: Full Range of Motion, Non-Tender, Normal, Normal Inspection Respiratory: Chest Non-Tender, Lungs Clear, No Accessory Muscle Use, No Respiratory Distress, Normal Breath Sounds Cardiovascular: No Edema, No JVD, No Murmur, No Gallop, Normal Peripheral Pulses, Regular Rate/Rhythm Breast Exam: Deferred Gastrointestinal: Other (Diffuse epigastric tenderness to palpation bilaterally. Abdomen was moderately rigid. Patient is in moderate to significant pain. No pulsatile masses appreciated.) Genitalia: Deferred Pelvic: Deferred Rectal: Deferred Extremities: No calf tenderness, Normal capillary refill, No pedal edema Neurologic: Alert Cerebellar Function: NOT DONE Reflexes: NOT DONE Skin: Dry, Normal Color, Warm Lymphatic: No Adenopathy Was a procedure done? Was a procedure done?: No EKG EKG : Pulse Rate (adult): 67 [place]: Normal Cardiac Rhythm: NSR Block: None Hypertrophy: None ST: Normal Differential Dx Considerations may include: gastritis, gastroenteritis, GERD, PUD, cholelithiasis, cholecystitis, acute COPD exacerbation, URI, viral syndrome, [place], PE, small-bowel obstruction, among others X-Ray, Labs, Meds, VS Vital Signs Date Time Temp Pulse Resp B/P (MAP) Pulse Ox O2 Delivery O2 Flow Rate FiO2 07/01/25 21:00 14 110/57 (74) 90 07/01/25 20:52 79 22 110/57 07/01/25 20:11 82 16 99 Nasal Cannula* 4 36 07/01/25 20:11 97.8 72 16 129/90 (103) 99 97.8 07/01/25 19:35 66 13 156/66 07/01/25 19:20 67 07/01/25 18:41 66 17 169/88 07/01/25 18:30 Room Air* 0 21 07/01/25 18:30 97.5 66 17 169/88 (115) 95 97.5 07/01/25 18:27 67 07/01/25 18:10 77 24 168/85 97 Lab Test 9/28/25 20:19 07/01/25 19:35 07/01/25 18:55 Range/Units Urine Color Pending Urine Clarity Pending Urine pH Pending Urine Specific [place] Pending Urine Protein Pending Urine Ketones Pending Urine Blood Pending Urine Nitrite Pending Urine Bilirubin Pending Urine Urobilinogen Pending Urine Leukocyte Esterase Pending Urine RBC Pending Urine Microscopic WBC Pending Urine Squamous Epithelial Cells Pending Urine Bacteria Pending Urine Glucose Pending Troponin I High Sensitivity 6 6 </=34 ng/L White Blood Count 11.9 H 4.4-10.8 10^3/uL Red Blood Count 4.96 4.0-5.20 10^6/uL Hemoglobin 14.5 12.2-16.2 g/dL Hematocrit 40.9 36.0-46.0 % Mean Corpuscular Volume 82.6 80.0-100.0 fL Mean Corpuscular Hemoglobin 29.3 28.0-32.0 pg Mean Corpuscular Hemoglobin Concent 35.5 32.0-36.0 g/dL Red Cell Distribution Width 13.4 11.8-14.3 % Platelet Count 356 140-450 10^3/uL Mean Platelet Volume 7.8 6.9-10.8 fL Neutrophils (%) (Auto) 74.2 37.0-80.0 % Lymphocytes (%) (Auto) 17.7 10.0-50.0 % Monocytes (%) (Auto) 6.6 0.0-12.0 % Eosinophils (%) (Auto) 0.9 0.0-7.0 % Basophils (%) (Auto) 0.6 0.0-2.0 % Neutrophils # (Auto) 8.8 H 1.6-8.6 10 ^3/uL Lymphocytes # (Auto) 2.1 0.4-5.4 10 ^3/uL Monocytes # (Auto) 0.8 0-1.3 10 ^3/uL Eosinophils # (Auto) 0.1 0-0.8 10 ^3/uL Basophils # (Auto) 0.1 0-0.2 10 ^3/uL Nucleated Red Blood Cells 0.1 % D-Dimer, Quantitative 1.16 H 0.0-0.49 mg/L FEU Sodium Level 141 136-145 mmol/L Potassium Level 3.8 3.5-5.1 mmol/L Chloride Level 103 98-107 mmol/L Carbon Dioxide Level 27 20-31 mmol/L Anion Gap 11 5-15 Blood Urea Nitrogen 16 9-23 mg/dL Creatinine 1.05 H 0.550-1.02 mg/dL Glomerular Filtration Rate Calc 53 >90 mL/min BUN/Creatinine Ratio 15.2 10.0-20.0 Serum Glucose 218 H 74-106 mg/dL Calcium Level 9.7 8.7-10.4 mg/dL Total Bilirubin 0.7 0.2-1.0 mg/dL Aspartate Amino Transferase (AST) 14 13-40 U/L Alanine Aminotransferase (ALT) 20 7-40 U/L Alkaline Phosphatase 146 H 46-116 U/L B-Type Natriuretic Peptide 69.21 0-100 pg/mL Total Protein 7.4 5.7-8.2 g/dL Albumin 4.6 3.2-4.8 g/dL Lipase 34 12-53 U/L Current Medications Medications (Trade) Dose Ordered Sig/Donaldo Route Start Time Stop Time Status Last Admin Hydromorphone HCl (Dilaudid Injection) 0.5 mg ONCE ONCE IV 07/01/25 18:30 07/01/25 18:31 DC 07/01/25 18:41 Ondansetron HCl (Zofran) 4 mg ONCE ONCE IV 07/01/25 18:30 07/01/25 18:31 DC 07/01/25 18:39 Hydromorphone HCl (Dilaudid Injection) 0.5 mg ONCE ONCE IV 07/01/25 21:00 07/01/25 21:01 DC 07/01/25 20:52 X-Ray, Labs, Meds, VS Comment All studies performed the ED were evaluated by me personally. Patient's laboratories were relatively unremarkable. Mild elevation in D-dimer. CT with contrast of the abdomen, pelvis and chest revealed a small bowel obstruction. Patient is a [facility] patient and therefore, I discussed the patient presentation as well as laboratory and imaging studies with Dr. Manriquez. He agreed to accept the patient as an admission for the small bowel obstruction. Patient has been advised her of the need for admission. Patient agreed to admission. Time of 1ST Reevaluation: 21:47 Reevaluation 1ST: Improved Consultation: PCP Patient Education/Counseling: Diagnosis, Treatment Family Education/Counseling: Diagnosis, Treatment, No Family Present SEPSIS Sepsis Screen Date sepsis recognized/suspect: Jul 01, 2025 Time Sepsis recognized/suspect: 1809 Recent Procedure: No On Antibiotic Therapy: No Respiratory Rate >20: Yes Heart Rate >90: No Temp<36 C (96.8 F) or >38.3 C: No SBP <90 or MAP <65 mmHG: No New Acute Mental Status Change: No Is the patient on CPAP, BIPAP,: No Physician Orders Urinalysis (07/01/25 18:24) Electrocardigram (07/01/25 18:24) Heplock Iv (07/01/25 ) Ct Chest/Ab/Pl W Con- Iv Only (07/01/25 18:24) Place Ng (07/01/25 21:31) Npo (Nothing By Mouth) Diet (07/02/25 Breakfast) Sodium Chloride 0.9% (07/01/25 21:45) Vital Signs Date Time Temp Pulse Resp B/P (MAP) Pulse Ox O2 Delivery O2 Flow Rate FiO2 07/01/25 21:00 14 110/57 (74) 90 07/01/25 20:52 79 22 110/57 07/01/25 20:11 82 16 99 Nasal Cannula* 4 36 07/01/25 20:11 97.8 72 16 129/90 (103) 99 97.8 07/01/25 19:35 66 13 156/66 07/01/25 19:20 67 07/01/25 18:41 66 17 169/88 07/01/25 18:30 Room Air* 0 21 07/01/25 18:30 97.5 66 17 169/88 (115) 95 97.5 07/01/25 18:27 67 07/01/25 18:10 77 24 168/85 97 Laboratory Tests Test 07/01/25 18:55 White Blood Count 11.9 10^3/uL (4.4-10.8) H Medications Medications Dose Ordered Sig/Donaldo Route Start Time Stop Time Status Last Admin Dose Admin Hydromorphone HCl 0.5 mg ONCE ONCE IV 07/01/25 18:30 07/01/25 18:31 DC 07/01/25 18:41 Hydromorphone HCl 0.5 mg ONCE ONCE IV 07/01/25 21:00 07/01/25 21:01 DC 07/01/25 20:52 Ondansetron HCl 4 mg ONCE ONCE IV 07/01/25 18:30 07/01/25 18:31 DC 07/01/25 18:39 Departure 1 Departure Time of Disposition: 21:47 Impression: Primary Impression: Small bowel obstruction Disposition: ADMITTED INPATIENT Condition: Fair Discharged With: Self, Relative Critical Care Note Critical Care Time?: No Stability Stability form required: No Heart Score Heart Score: Heart Score Response (Comments) Value History N/A 0 EKG N/A 0 Age N/A 0 Risk Factors N/A 0 Troponin N/A 0 Total 0 I personally scribed for REENA ALAMO PAC ([email or web address]) on 07/01/25 at 19:20. Electronically submitted by Nikita Olsen [email or web address]). REENA ALAMO PAC Jul 01, 2025 19:20
[2025-07-01 19:23] LABS: Alanine Aminotransferase 20 U/L (7-40); Albumin 4.6 g/dL (3.2-4.8); Anion Gap 11 (5-15); BUN/Creatinine Ratio 15.2 (10.0-20.0); Blood Urea Nitrogen 16 mg/dL (9-23); Calcium 9.7 mg/dL (8.7-10.4); Carbon Dioxide 27 mmol/L (20-31); Chloride 103 mmol/L (98-107); Potassium 3.8 mmol/L (3.5-5.1); Sodium 141 mmol/L (136-145); Total Protein 7.4 g/dL (5.7-8.2)
[2025-07-01 19:24] LABS: Bilirubin, Total 0.7 mg/dL (0.2-1.0)
[2025-07-01 19:27] LABS: Alkaline Phosphatase 146 U/L (46-116); Glucose 218 mg/dL (74-106)
[2025-07-01 20:11] VITALS: PULSE 82; RESP 16; O2SAT 99
--- NOTE | 2025-07-01 21:16 | DVH ---
Exam: CT CT CHEST/AB/PL W CON- IV ONLY History: Significant upper abdominal/lower chest pain Comparison Study: None Technique: Multidetector spiral CT of the chest, abdomen and pelvis was performed from lower neck to pubic symphysis. Intravenous contrast was administered during this examination. Portal venous imagin g was obtained. Axial, coronal and sagittal multiplanar reformats were performed by the technologist on a separate workstation. Radiation Dose : 1. Chest/Abdomen/Pelvis: CTDIvol 13.18 mGy, DLP 799.34 mGy*cm. Contrast: 100 cc omnipaque 300 Findings: Lower neck: Normal thyroid. Lungs: No focal consolidation, pleural effusion or pneumothorax. Heart/Vascular Structures: Normal heart size. No pericardial effusion. Lymph Nodes: No adenopathy Pleura: No pleural effusion or significant pneumothorax. Liver: The liver is normal in size. No focal lesions. Normal hepatic vascular enhancement. Gallbladder and biliary Tree: Unremarkable Spleen: Unremarkable Pancreas: The pancreas is normal in appearance without focal lesions or abnormal enhancement. Adrenal Glands: Unremarkable Kidneys: Kidneys demonstrate normal symmetric enhancement without focal lesions, calculi or hydroneph rosis. Bladder: Unremarkable Bowel: Moderate to high grade mid small bowel obstruction with finally loops of distal degenerative m easuring up to 3.5 cm, abruptly tapering in the right periumbilical region (series 2, image 154). The small bowel here appears mildly thickened but is poorly distended and not well assessed. Ascites: Absent Lymphadenopathy: No mesenteric, retroperitoneal or periportal lymphadenopathy. Abdominal wall and Mesentery: Unremarkable. Vasculature: The visualized abdominal aorta is normal in size and caliber. Abdominal and pelvic vess els demonstrate normal enhancement. Pelvic Organs: Unremarkable Musculoskeletal: No aggressive focal bony lesions, acute fractures or dislocation. IMPRESSION: Moderate to high grade mid small bowel obstruction with abrupt transition in the right perimbilical r egion where the small bowel here appears mildly thickened. No obvious inflammatory changes however.
[2025-07-01 21:53] LABS: Urine Protein, UAD TRACE (Negative)
[2025-07-01] MEDS ORDERED: DEXTROSE (50%) 50ML SYRG IV PRN (22:00)
[2025-07-01] MEDS ORDERED: NITROGLYCERIN 0.4 MG SL TAB SL PRN (22:00)
[2025-07-01] MEDS: SODIUM CHLORIDE 0.9% 1,000 ML IV ONE (22:09)
[2025-07-01] MEDS: SOD CHL 0.45% 1,000 ML IV SCH (22:15)
[2025-07-01] MEDS: MORPHINE SULFATE INJ 2 MG/ml SYRG IV PRN (22:53)
--- NOTE | 2025-07-01 22:54 | DVH ---
CHEST RADIOGRAPH Indication: check NG tube placement Technique: Single frontal view of the chest was obtained COMPARISON: CT CT CHEST/AB/PL W CON- IV ONLY on DOS: 07/01/25, XY CHEST XRAY 1 VIEW on DOS: 06/05/25 FINDINGS: NGT appears well positioned terminating in the mid stomach. Cardiac silhouette is mildly enlarged with mild diffuse prominence of the pulmonary vasculature and s light prominence of the interstitium. Mild streaky atelectatic changes at both lung bases. IMPRESSION: NGT well positioned. Mild pulmonary venous congestion and likely mild edema.
[2025-07-01] MEDS: ONDANSETRON HCL 4 MG/2 ML VIAL IV PRN (22:56)
[2025-07-01 23:09] VITALS: BP 142/70; PULSE 74; RESP 17; TEMP 97.5; O2SAT 100
[2025-07-02] MEDS: ACCU-CHEK COMFORT CURVE STRIP VI SCH
[2025-07-02] MEDS: PIPERACILLIN-TAZOB 3.375GM 100 ML IV SCH
[2025-07-02] MEDS: InsuLIN REG 1unit/0.01ml Soln (100units/ml) SC SCH
--- NOTE | 2025-07-02 00:26 | DVHHP ---
ADMIT DATE: 07/01/2025 CHIEF COMPLAINT: Coming in for periumbilical abdominal pain. HISTORY OF PRESENT ILLNESS: An 80-year-old female with a significant past medical history for diabetes mellitus type 2, essential hypertension, and hyperlipidemia with no prior abdominal surgeries, who presents to the Emergency Room with new onset of abdominal pain. The patient says her abdominal pain had started about 24 hours ago. It is in the periumbilical/upper epigastric region associated with nausea and some vomiting episodes. The patient has had also feeling of coldness, but no fevers, no chills. The patient says the last bowel movement was yesterday, slightly watery. The patient has been passing gas ever since. She says about 4 days ago she did have some bright red blood in the toilet, but not on wiping, apparently. The patient has not had any recurrence of the blood since then. She denies any chest pain or shortness of breath, diarrhea, constipation, urinary frequency, urgency, burning sensation, or cough or phlegm. PAST MEDICAL HISTORY: Essential hypertension, hyperlipidemia, diabetes mellitus type 2. PAST SURGICAL HISTORY: Had a history of breast cancer status post radiation therapy last year. SOCIAL HISTORY: No tobacco, no alcohol, no illicit drugs. MEDICATIONS AT HOME: Per medical reconciliation. MEDICATION ALLERGIES: No known drug allergies. REVIEW OF SYSTEMS: A 10-point review of systems was covered with the patient and was negative with the exception to what was presented in the history of present illness. PHYSICAL EXAMINATION: VITAL SIGNS: Temperature 97.8, pulse rate of 75, respiratory rate of 14, blood pressure of 141/75 with a pulse ox of about 99% on 4 liters nasal cannula. GENERAL: Seems to be alert and oriented x4, in no acute distress female, lying in bed. HEENT: Normocephalic, atraumatic. Extraocular muscles are intact. Pupils are equally round and reactive to light and accommodations. Mucous membranes look slightly dry. CARDIOVASCULAR: S1, S2 positive. Regular rate and rhythm. No rubs, gallops or murmurs. LUNGS: Lungs are clear to auscultation bilaterally. No wheezing, rhonchi, or rales. ABDOMEN: Some epigastric and periumbilical tenderness on palpation. No guarding. No rebound. No abdominal rigidity. Bowel sounds are present. EXTREMITIES: Lower extremities without lower extremity edema, clubbing, or cyanosis. NEUROLOGIC: No focal deficits. Cranial nerve testing 2-12 overall seems to be intact. LABORATORY WORKUP: Shows a white count of 11.9, H and H of 14.5 and 40.9, platelet count of 356,000. There seems to be no neutrophil shift with a neutrophil percentage of 74.2%. Sodium 141, potassium 3.8, chloride 103, carbon dioxide 27, anion gap of 11, BUN of 16, creatinine of 1.05, glucose of 218, AST of 14, ALT of 20, alkaline phosphatase 146. Troponin 6, repeat of 6. BNP of 69.21, lipase of 34, D-dimer of 1.16. Urinalysis shows 1+ leukocyte esterase, urine WBCs of 14, negative nitrites. IMAGING: CT abdomen and chest and pelvis with IV contrast was completed. Impression: Moderate to high-grade mid small bowel obstruction with abrupt transition in the right periumbilical region where the small bowel here appears mildly thickened. No obvious inflammatory changes seen. Chest x-ray: Nasogastric tube well positioned, mild pulmonary venous congestion and likely mild edema. EKG was completed and shows normal sinus rhythm, ventricular rate 67 with isolated T wave in V1. Otherwise, no ST depressions or elevations. DIAGNOSES: * Small bowel obstruction. * Uncomplicated urinary tract infection. SECONDARY DIAGNOSES: * Essential hypertension. * Hyperlipidemia. * Diabetes mellitus type 2. PLAN: The patient will be admitted to the medical surgical floor for continuous monitoring. The patient will be maintained NPO at this point in time. NG tube has been placed and will be placed under intermittent low suction. The patient will have IV hydration with half normal saline at 100 mL an hour. The patient has been ordered consultation with General Surgery with Dr. Reynaldo Rao. The patient again will be maintained n.p.o. at this point in time, Zofran 4 mg IV p.r.n. for nausea and vomiting, morphine 2 mg IV p.r.n. for moderate to severe pain. Additionally, the patient will be placed on Accu-Cheks every 6 hours with a mild dose sliding scale insulin. The patient will be placed on hydralazine 10 mg IV p.r.n. q.6h. for SBPs greater than 160. SCDs to bilateral lower extremities for DVT prophylaxis. The patient is a full code. A.m. labs with CBC and BMP in the morning. Further recommendations will depend on patient's hospital progression. Jos Agosto MD LM/CHIP TID: [id number] RECEIPT: [id number]
[2025-07-02] MEDS ORDERED: FLUT1AER3 INH (03:22)
[2025-07-02] MEDS ORDERED: IBUP1TAB5 PO (03:22)
[2025-07-02] MEDS ORDERED: ALBU0.084 (03:22)
[2025-07-02] MEDS ORDERED: LOSA-535 PO (03:22)
[2025-07-02] MEDS ORDERED: SEMA2INJ3 SC (03:22)
[2025-07-02] MEDS: HYDROmorphone HCL 2 MG/ML VL/or syr IV PRN (03:46)
[2025-07-02 05:00] VITALS: BP 126/72; PULSE 71; RESP 18; TEMP 97.8; O2SAT 96
[2025-07-02 06:35] LABS: Hematocrit 39.1 % (36.0-46.0); Hemoglobin 13.9 g/dL (12.2-16.2); Mean Corpuscular Hemoglobin 29.8 pg (28.0-32.0); Mean Corpuscular Volume 83.6 fL (80.0-100.0); Nucleated Red Blood Cells % 0.2 %
[2025-07-02 06:42] LABS: Anion Gap 8 (5-15); Carbon Dioxide 31 mmol/L (20-31); Chloride 101 mmol/L (98-107); Potassium 4.5 mmol/L (3.5-5.1); Sodium 140 mmol/L (136-145)
[2025-07-02 06:44] LABS: Calcium 9.2 mg/dL (8.7-10.4); INR 0.93 (0.9-1.15); Prothrombin Time 9.9 sec (9.3-11.8)
[2025-07-02 06:48] LABS: BUN/Creatinine Ratio 14.8 (10.0-20.0); Blood Urea Nitrogen 16 mg/dL (9-23)
[2025-07-02 06:49] LABS: Glucose 200 mg/dL (74-106)
--- NOTE | 2025-07-02 07:04 | DVHINCON2 ---
DATE OF CONSULTATION: 07/02/2025 REQUESTING PHYSICIAN: Dr. Wren. CONSULTING PHYSICIAN: Daniel Rao MD REASON FOR CONSULTATION: Abdominal pain/small bowel obstruction. HISTORY OF PRESENT ILLNESS: The patient is an 80-year-old female who came to the Emergency Room complaining of nausea and vomiting with associated epigastric abdominal pain since yesterday. She described her emesis as food and fluid. Denied fevers, hemoptysis, hematemesis, bilious emesis, chest pain, shortness of breath, unintentional weight loss, night sweats, or melena. She had hematochezia yesterday, which was self-limited. Described it as a lot of blood in the toilet. There was no stool. Her last colonoscopy was approximately 20 or more years ago. She stated that the polyps were removed. She admitted to associated chills and abdominal distention. She continues passing flatus. Has not had any further bowel movements. PAST MEDICAL HISTORY: Significant for hypertension, diabetes, hyperlipidemia, CVA, left breast cancer, CKD, and thyroid nodule, which has been biopsied twice in the recent past. PAST SURGICAL HISTORY: , appendectomy, tonsillectomy, total abdominal hysterectomy with bilateral salpingo-oophorectomy and left lumpectomy. She does not know whether she had a lymphadenopathy or lymph node biopsy. She underwent adjuvant radiation therapy. No chemotherapy. MEDICATIONS: She is currently receiving Zosyn, Dilaudid, insulin sliding scale, morphine, nitroglycerin p.r.n., and Zofran. ALLERGIES: No known drug allergies. SOCIAL HISTORY: Admits to approximately a [id number] history of smoking. Quit smoking 4 years ago. Denies alcohol use, drug use, marijuana use, or vaping. FAMILY HISTORY: Noncontributory. REVIEW OF SYSTEMS: NEUROLOGIC: Negative. PSYCHIATRIC: Negative. ENDOCRINE: Negative. ENT: Negative. CARDIOVASCULAR: Negative. PULMONARY: Negative. GASTROINTESTINAL: As above. GENITOURINARY: Negative. HEMATOLOGIC/INFECTIOUS DISEASE: Negative. LYMPHATICS: Negative. MUSCULOSKELETAL: Negative. SKIN: Negative. PHYSICAL EXAMINATION: GENERAL: She is lying comfortably in bed. She is calm, pleasant and in no distress. She is afebrile with stable vital signs with the exception of episode of mild hypertension. NEUROLOGIC: Grossly intact. Alert, awake, and oriented x 3. HEAD, EARS, EYES, NOSE AND THROAT: Normocephalic. Pupils equally round. Extraocular muscles intact. Trachea is midline. HEART: Normal heart rate and mildly hypertensive. LUNGS: Effortless breathing. Normal respiratory rate and oxygen saturation. Received supplemental oxygen via nasal cannula. ABDOMEN: Soft, distended, nontender. No palpable masses, hernias, or visceromegaly. No peritoneal signs or rebound. NG tube in place and clamped. Unknown reason why it is clamped. EXTREMITIES: No edema or tenderness. LABORATORY DATA: I reviewed her labs demonstrating white blood cell count 12, creatinine 1.05, glucose 218, alkaline phosphatase 146. Coagulation parameters are pending. UA negative for suggestion of infection. CT scan of the abdomen and pelvis was reviewed with corresponding report. There is evidence of CAD as well as aortoiliac atherosclerosis. Excellent opacification of the aorta and iliac vessels as well as mesenteric vessels. There is a distended stomach with debris within. In the pyloric/duodenal region, there is prepyloric/periduodenal edema. Bilateral renal cysts. Dilated loops of small intestine with fecalization suggestive of a high-grade small bowel obstruction. The distal small bowel is decompressed. Evidence of previous hysterectomy. Small umbilical hernia with fat within the sac. Stool within the colon. Rectum and sigmoid decompressed. Diverticulosis without diverticulitis. ASSESSMENT: An 80-year-old female with a small bowel obstruction. PLANS AND RECOMMENDATIONS: Recommend strict NPO, IV fluids, DVT and GI prophylaxis. NG tube to continuous suction at 80 mmHg. No need for antibiotic therapies from a surgical standpoint. The patient was made aware of the plan of care which would consist of nonoperative management. If the patient's condition does not improve or worsen over time, surgical intervention may be required. The patient understands and agrees with the plan of care. Thank you, Dr. Wren, for allowing me to participate in the care of your patient. I will follow her with you. Daniel Rao MD WBR/SAY TID: [id number] RECEIPT: [id number]
[2025-07-02 09:00] VITALS: BP 139/82; PULSE 77; RESP 18; TEMP 97.7; O2SAT 96
[2025-07-02] MEDS: PANTOPRAZOLE 40 MG/10 ML VIAL INJ IV SCH (09:14)
[2025-07-02] MEDS: SOD CHL 0.45% 1,000 ML IV SCH (09:26)
[2025-07-02 12:59] VITALS: BP 116/86; PULSE 104; RESP 18; TEMP 97.5; O2SAT 93
[2025-07-02] MEDS: MORPHINE SULFATE 4 MG/ML SYR/VIAL IV PRN ×2 (15:54→20:50)
[2025-07-02 17:00] VITALS: BP 120/67; PULSE 88; RESP 16; TEMP 98.1; O2SAT 91
[2025-07-02 20:00] VITALS: RESP 19
[2025-07-02 20:42] VITALS: BP 115/70; PULSE 94; RESP 18; TEMP 97.9; O2SAT 98
[2025-07-03] VITALS (8 sets, daily range): BP systolic 92–118; BP diastolic 46–66; PULSE 59–105; RESP 14–18; TEMP 97.2–97.8; O2SAT 94–99
--- NOTE | 2025-07-03 06:05 | DVHPN2 ---
Progress Note Date Seen: Jul 03, 2025 Medical Necessity Reason Pt with a Central, PICC or Fol: No Subjective Review of Systems Pt c/o abdominal pain, N/V. Denies flatus or BM Objective vital signs Vital Sign Date Time Temp Pulse Resp B/P (MAP) Pulse Ox O2 Delivery O2 Flow Rate FiO2 07/03/25 04:50 97.7 92 18 113/66 (82) 99 97.7 07/02/25 20:00 Nasal Cannula* 2 28 Total Intake and Output 07/02/25 07/02/25 07/03/25 15:00 23:00 07:00 Intake Total 100 ml 100 ml Output Total 325 ml 550 ml Balance -325 ml 100 ml -450 ml medications Current Medications Medications Dose Ordered Sig/Donaldo Route Start Time Stop Time Status Last Admin Dose Admin Diagnostic Test (Pha) 1 strip Q6HR 07/02/25 00:00 07/03/25 05:12 1 STRIP Insulin Human Regular Q6HR SC 07/02/25 00:00 07/02/25 23:48 6 UNITS Dextrose 50 ml UD PRN IV 07/01/25 22:00 Ondansetron HCl 4 mg Q4HPRN PRN IV 07/01/25 22:00 07/02/25 19:56 4 MG Hydralazine HCl 10 mg Q6HP PRN IV 07/01/25 22:00 Nitroglycerin 0.4 mg Q5MINP PRN SL 07/01/25 22:00 Piperacillin Sod/ Tazobactam Sod 100 ml @ 25 mls/hr Q6HR IV 07/02/25 00:00 07/02/25 23:25 25 MLS/HR Hydromorphone HCl 0.4 mg Q4HPRN PRN IV 07/02/25 03:00 07/02/25 03:46 0.4 MG Pantoprazole Sodium 40 mg BID IV 07/02/25 10:00 07/02/25 21:26 40 MG Sodium Chloride 1,000 ml @ 75 mls/hr [id number] IV 07/02/25 07:30 07/02/25 09:26 75 MLS/HR Morphine Sulfate 2 mg Q4HPRN PRN IV 07/02/25 17:30 07/03/25 01:35 2 MG Examination GENERAL: She was sitting in bed. She is calm, pleasant and in mild distress secondary to nausea. She remains afebrile with stable vital signs NEUROLOGIC: Grossly intact. Alert, awake, and oriented x 3. HEAD, EARS, EYES, NOSE AND THROAT: Normocephalic. Pupils equally round. Extraocular muscles intact. Trachea is midline. HEART: Normal heart rate and mildly hypertensive. LUNGS: Effortless breathing. Normal respiratory rate and oxygen saturation. Receiving supplemental oxygen via nasal cannula. ABDOMEN: Soft, distended, minimally tender. No palpable masses, hernias, or visceromegaly. No peritoneal signs or rebound. NG tube in place connected to continuous suction at 80 mmHg. Bilious fluid within collection canister. NGT was clogged. Flushed, immediately collecting bilious fluid. EXTREMITIES: No edema or tenderness laboratory and microbiology Laboratory Tests 07/02/25 05:53 Test 07/02/25 05:53 Range/Units Serum Glucose 200 H 74-106 mg/dL Labs and/or images reviewed: Labs reviewed by me Problem List/Assessment/Plan Problems(with codes): (1) Small bowel obstruction Problem List/Assessment/Plan Continue NPO, NGT, IVF, DVT and GI prophylaxis. AXR. Leukocytosis. Pending BMP. If pt condition does not improve or persists will need surgical intervention. Recommend cardiology preoperative evaluation in the event pt requires surgical intervention. Plan discussed with: Other (Pt and RN) My Orders My Orders Orders - CARLI HERNANDEZ MD Procedure Category Date Status Time Ng To Lcs JONEL 07/02/25 In Process 06:41 Pantoprazole PHA 07/02/25 In Process (Protonix) 10:00 Kub Abdomen Single XY 07/03/25 Logged View 05:57 CARLI HERNANDEZ MD Jul 03, 2025 06:05
--- NOTE | 2025-07-03 06:12 | ECG ---
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
[2025-07-03 06:18] LABS: Hematocrit 42.4 % (36.0-46.0); Hemoglobin 15.0 g/dL (12.2-16.2); Mean Corpuscular Hemoglobin 29.5 pg (28.0-32.0); Mean Corpuscular Volume 83.4 fL (80.0-100.0); Nucleated Red Blood Cells % 0.1 %
[2025-07-03 06:31] LABS: Chloride 102 mmol/L (98-107); Potassium 4.5 mmol/L (3.5-5.1); Sodium 141 mmol/L (136-145)
[2025-07-03 06:32] LABS: Anion Gap 13 (5-15); Carbon Dioxide 26 mmol/L (20-31)
[2025-07-03 06:33] LABS: Calcium 8.6 mg/dL (8.7-10.4)
[2025-07-03 06:37] LABS: BUN/Creatinine Ratio 21.4 (10.0-20.0)
[2025-07-03 06:38] LABS: Blood Urea Nitrogen 30 mg/dL (9-23); Glucose 226 mg/dL (74-106)
--- NOTE | 2025-07-03 07:01 | DVH ---
ABDOMINAL RADIOGRAPH Indication: SBO Technique: Single frontal view of the abdomen was obtained Comparison: CT scan of the abdomen pelvis dated 07/01/2025 FINDINGS: Lines and tubes: There is an enteric tube with its tip terminating in the stomach. There are dilated small bowel loops. Stool throughout the colon noted. IMPRESSION: 1. Enteric tube terminates in the stomach. 2. Dilated small bowel loops compatible with small bowel obstruction.
--- NOTE | 2025-07-03 07:10 | DVHPN2 ---
Progress Note Date Seen: Jul 03, 2025 Has the PT tested + for MRSA If YES, has PT been informed?: No Medical Necessity Reason Pt with a Central, PICC or Fol: No Subjective Patient reports: No new complaints Review of Systems: CVS:Normal, RESPIRATORY:Normal, GI:Abnormal Objective vital signs Vital Sign Date Time Temp Pulse Resp B/P (MAP) Pulse Ox O2 Delivery O2 Flow Rate FiO2 07/03/25 06:35 65 17 105/62 07/03/25 04:50 97.7 99 97.7 07/02/25 20:00 Nasal Cannula* 2 28 Total Intake and Output 07/02/25 07/02/25 07/03/25 15:00 23:00 07:00 Intake Total 100 ml 100 ml Output Total 325 ml 550 ml Balance -325 ml 100 ml -450 ml medications Current Medications Medications Dose Ordered Sig/Donaldo Route Start Time Stop Time Status Last Admin Dose Admin Diagnostic Test (Pha) 1 strip Q6HR 07/02/25 00:00 07/03/25 05:12 1 STRIP Insulin Human Regular Q6HR SC 07/02/25 00:00 07/03/25 06:17 4 UNITS Dextrose 50 ml UD PRN IV 07/01/25 22:00 Ondansetron HCl 4 mg Q4HPRN PRN IV 07/01/25 22:00 07/03/25 06:04 4 MG Hydralazine HCl 10 mg Q6HP PRN IV 07/01/25 22:00 Nitroglycerin 0.4 mg Q5MINP PRN SL 07/01/25 22:00 Piperacillin Sod/ Tazobactam Sod 100 ml @ 25 mls/hr Q6HR IV 07/02/25 00:00 07/03/25 06:05 25 MLS/HR Hydromorphone HCl 0.4 mg Q4HPRN PRN IV 07/02/25 03:00 07/02/25 03:46 0.4 MG Pantoprazole Sodium 40 mg BID IV 07/02/25 10:00 07/02/25 21:26 40 MG Sodium Chloride 1,000 ml @ 75 mls/hr [id number] IV 07/02/25 07:30 07/02/25 09:26 75 MLS/HR Morphine Sulfate 2 mg Q4HPRN PRN IV 07/02/25 17:30 07/03/25 06:05 2 MG Examination: GENERAL:Normal, LUNGS:Normal, CVS:Normal, ABDOMEN:Abnormal laboratory and microbiology Laboratory Tests 07/03/25 05:52 Test 07/03/25 05:52 Range/Units Serum Glucose 226 H 74-106 mg/dL Problem List/Assessment/Plan Problem List/Assessment/Plan 1) SBO 2) HTN 3) HLD 4) DM 5) UTI plan; NPO, NG suction, IVF hydration, DVT ppx, surgery on board and ordered abdominal film for this AM, continue all care, will order cardiology consult and echo in the event patient needs surgery and has to be cleared by cardiology, daily labs, pain control and antiemetics, will follow along Plan discussed with: Other (n) DAY SALAS MD Jul 03, 2025 07:10
[2025-07-03] MEDS: HEPARIN SODIUM (PORCINE) 5000 UNITS/ML 1ML VIAL SC SCH (09:44)
[2025-07-03] MEDS: SODIUM CHLORIDE 0.9% 1,000 ML IV ONE (13:02)
[2025-07-03] MEDS: SOD CHL 0.45% 1,000 ML IV SCH (14:00)
[2025-07-03] MEDS: PIPERACILLIN-TAZOB 3.375GM 100 ML IV SCH (14:51)
--- NOTE | 2025-07-04 00:37 | DVHINCON2 ---
Date of service: Jul 03, 2025 Referring Physician Enoc Reason for Consultation Preop cardiac clearance History of Present Illness This is a 80-year-old female with a PMH of diabetes mellitus type 2, essential hypertension, and hyperlipidemia who presented to the ED with c/o abdominal pain x 24 hours. It is in the periumbilical/upper epigastric region associated with nausea and some vomiting episodes The patient says the last bowel movement was yesterday, slightly watery. The patient has been passing gas ever since. She says about 4 days ago she did have some bright red blood in the toilet, but not on wiping, apparently. The patient has not had any recurrence of the blood since then. EKG is NSR at 67. WBC 11.9, Platelet 356,000, Sodium 141, potassium 3.8, chloride 103, carbon dioxide 27, anion gap of 11, BUN 16, creatinine 1.05, glucose of 218, AST 14, ALT 20, alkaline phosphatase 146, Troponin is negative x2, BNP 69.21, lipase of 34, D-dimer 1.16. Urinalysis shows 1+ leukocyte esterase, urine WBCs of 14, negative nitrites. CT abdomen and chest and pelvis with IV contras shows moderate to high-grade mid small bowel obstruction with abrupt transition in the right periumbilical region where the small bowel here appears mildly thickened. No obvious inflammatory changes seen. Chest x-ray: nasogastric tube well positioned, mild pulmonary venous congestion and likely mild edema. Patient was admitted to the hospital. I am asked to consult on this patient. Family History: Arthritis G8 MOTHER Cardiovascular disease G8 MOTHER Diabetes mellitus G8 FATHER Allergies: Coded Allergies: NO KNOWN ALLERGIES (Unverified , 06/05/25) Home Meds Active Scripts Aspirin (Aspirin Low Dose) 81 Mg Tab, 81 MG PO DAILY for 30 Days, #30 TAB 0 Refills Prov:BECKY LIMON Jon DO 06/07/25 Reported Medications Semaglutide (Ozempic) 2 Mg/3 Ml Inj, 0.25 MG SC QWEEKLY 07/02/25 Ibuprofen Micronized (Ibuprofen) 600 Mg Tab, 1 TAB PO TID 07/02/25 Losartan Potassium (Losartan Potassium) 100 Mg Tab, 1 TAB PO DAILY 07/02/25 Vauhaeqdyqq-Whyzevuzyxdq-Mhhru (Trelegy Ellipta 100-62.5-25 Mcg/INH) 1 Aer Aer, 1 PUFF INH DAILY 07/02/25 Albuterol Sulfate (Albuterol Sulfate) 0.083 % Neb 07/02/25 Alendronate Sodium (Alendronate Sodium) 70 Mg Tab, 1 TAB PO QWEEKLY, #4 TAB 3 Refills 06/07/25 Amlodipine Besylate (Amlodipine Besylate) 2.5 Mg Tab, 2.5 MG PO DAILY, TAB 06/07/25 Senna (Senokot) 8.6 Mg Tab, 8.6 MG PO HS, TAB 06/07/25 Prednisone (Prednisone) 20 Mg Tab, 20 MG PO BID, MG 06/07/25 Atorvastatin Calcium (ATORVASTATIN CALCIUM) 20 Mg Tab, 1 TAB PO DAILY, #30 TAB 5 Refills 06/07/25 Letrozole (LETROZOLE) 2.5 Mg Tab, 2.5 MG PO DAILY, TAB 06/07/25 Current Medications Current Medications Medications (Trade) Dose Ordered Sig/Donaldo Route PRN Reason Start Time Stop Time Status Last Admin Heparin Sodium (Porcine) 5,000 units Q12HR SC 07/03/25 10:00 07/03/25 21:32 Piperacillin Sod/ Tazobactam Sod 100 ml @ 25 mls/hr Q8H IV 07/03/25 14:00 07/03/25 21:31 Sodium Chloride 1,000 ml @ 125 mls/hr Q8H IV 07/03/25 12:45 07/03/25 21:01 Review of Systems Constitutional: reports: weakness; denies: chills, diaphoresis, fatigue, fever, malaise, sweats, others EENTM: denies: blurred vision, double vision, ear bleeding, ear discharge, ear drainage, ear pain, ear ringing, eye pain, eye redness, hearing loss, mouth pain, mouth swelling, nasal discharge, nose bleeding, nose congestion, nose pa in, photophobia, tearing, throat pain, throat swelling, voice changes, others Respiratory: denies: cough, hemoptysis, orthopnea, SOB at rest, shortness of breath, SOB with excertion, stridor, wheezing, others Cardiovascular: reports: chest pain; denies: dizzy spells, diaphoresis, Dyspnea on exertion, edema, irregular heart beat, left arm pain, lightheadedness, palpitations, PND, syncope, others Gastrointestinal: reports: abdominal pain, nausea, vomiting; denies: abdomen distended, blood streaked bowels, constipated, diarrhea, dysphagia, difficulty swallowing, hematemesis, melena, poor appetite, poor fluid intake, rectal bleeding, rectal pain, others Genitourinary: denies: abnormal vagina bleeding, burning, dyspareunia, dysuria, flank pain, frequency, hematuria, incontinence, pain, , vagina discharge, urgency, others Neurological: denies: dizziness, fainting, headache, left sided numbness, left sided weakness, numbness, paresthesia, pre-existing deficit, right sided numbness, right sided weakness, seizure, speech problems, tingling, tremors, weakness, others Musculoskeletal: denies: back pain, gout, joint pain, joint swelling, muscle pain, muscle stiffness, neck pain, others Integumetry: denies: bruises, change in color, change in hair/nails, dryness, laceration, lesions, lumps, rash, wounds, others Allergic/Immunocompromised: denies: Difficulty Healing, Frequent Infections, Hives, Itching, others Hematologic/Lymphatic: denies: anemia, blood clots, easy bleeding, easy bruising, swollen glands, others Endocrine: denies: excessive hunger, excessive sweating, excessive thirst, excessive urination, flushing, intolerance to cold, intolerance to heat, unexplained weight gain, unexplained weight loss, others Psychiatric: denies: anxiety, bipolar disorder, depression, hopeless, panic disorder, schizophrenia, sleepless, suicidal, others All Other Systems: Reviewed and Negative (Comprehensive review of systems are negative unless stated in HPI) Vital Signs Vital Signs Date Time Temp Pulse Resp B/P (MAP) Pulse Ox O2 Delivery O2 Flow Rate FiO2 07/03/25 21:00 97.2 80 18 92/46 (61) 94 97.2 07/03/25 20:00 Nasal Cannula* 2 28 Physical Exam GENERAL: Alert and oriented x 3. No acute distress. EYES: PERRL, EOMI. Anicteric. HENT: Moist mucous membranes. LUNGS: Clear to auscultation bilaterally. CARDIOVASCULAR: Regular rate and rhythm. ABDOMEN: Soft, diffuse epigastric TTP. EXTREMITIES: No edema. NEUROLOGIC: No focal neurological deficits. SKIN: Warm, dry. Labs/Diagnostic Data Labs Test 07/03/25 17:52 07/03/25 05:52 07/02/25 05:53 07/01/25 20:19 Range/Units POC Glucose 148 H 70-106 mg/dl White Blood Count 15.5 H 4.4-10.8 10^3/uL Red Blood Count 5.08 4.0-5.20 10^6/uL Hemoglobin 15.0 12.2-16.2 g/dL Hematocrit 42.4 36.0-46.0 % Mean Corpuscular Volume 83.4 80.0-100.0 fL Mean Corpuscular Hemoglobin 29.5 28.0-32.0 pg Mean Corpuscular Hemoglobin Concent 35.3 32.0-36.0 g/dL Red Cell Distribution Width 13.8 11.8-14.3 % Platelet Count 376 140-450 10^3/uL Mean Platelet Volume 8.1 6.9-10.8 fL Neutrophils (%) (Auto) 87.2 H 37.0-80.0 % Lymphocytes (%) (Auto) 5.1 L 10.0-50.0 % Monocytes (%) (Auto) 7.3 0.0-12.0 % Eosinophils (%) (Auto) 0.2 0.0-7.0 % Basophils (%) (Auto) 0.2 0.0-2.0 % Neutrophils # (Auto) 13.5 H 1.6-8.6 10 ^3/uL Lymphocytes # (Auto) 0.8 0.4-5.4 10 ^3/uL Monocytes # (Auto) 1.1 0-1.3 10 ^3/uL Eosinophils # (Auto) 0 0-0.8 10 ^3/uL Basophils # (Auto) 0 0-0.2 10 ^3/uL Nucleated Red Blood Cells 0.1 % Sodium Level 141 136-145 mmol/L Potassium Level 4.5 3.5-5.1 mmol/L Chloride Level 102 98-107 mmol/L Carbon Dioxide Level 26 20-31 mmol/L Anion Gap 13 5-15 Blood Urea Nitrogen 30 #H 9-23 mg/dL Creatinine 1.40 H 0.550-1.02 mg/dL Glomerular Filtration Rate Calc 38 >90 mL/min BUN/Creatinine Ratio 21.4 H 10.0-20.0 Serum Glucose 226 H 74-106 mg/dL Calcium Level 8.6 L 8.7-10.4 mg/dL Prothrombin Time 9.9 9.3-11.8 sec Prothrombin Time INR 0.93 0.9-1.15 Urine Color Yellow Yellow Urine Clarity Clear Clear Urine pH 6.0 5.0-9.0 Urine Specific [place] 1.025 1.001-1.035 Urine Protein Trace H Negative Urine Ketones Negative Negative Urine Blood Negative Negative /uL Urine Nitrite Negative Negative Urine Bilirubin Negative Negative Urine Urobilinogen 2 H Negative mg/dL Urine Leukocyte Esterase 1+ Negative /uL Urine RBC 2 0 - 4 /hpf Urine Microscopic WBC 14 H 0-5 /HPF Urine Squamous Epithelial Cells Few <5 /hpf Urine Bacteria None seen None Seen /hpf Urine Hyaline Casts Few 0 - 2 /lpf Urine Mucus Few None Seen Urine Glucose 3+ H Normal mg/dL Test 07/01/25 19:35 07/01/25 18:55 Range/Units Troponin I High Sensitivity 6 </=34 ng/L D-Dimer, Quantitative 1.16 H 0.0-0.49 mg/L FEU Total Bilirubin 0.7 0.2-1.0 mg/dL Aspartate Amino Transferase (AST) 14 13-40 U/L Alanine Aminotransferase (ALT) 20 7-40 U/L Alkaline Phosphatase 146 H 46-116 U/L B-Type Natriuretic Peptide 69.21 0-100 pg/mL Total Protein 7.4 5.7-8.2 g/dL Albumin 4.6 3.2-4.8 g/dL Lipase 34 12-53 U/L Microbiology Date/Time Source Procedure Growth Status 07/02/25 04:15 Nose MRSA Screen - Final Complete Assessment SBO. HTN. HLD. DM. UTI. Plan/Recommendation I agree with your ongoing assessment and care of plan. Patient is cardiac clear for surgery. Echocardiogram. IV Hydralazine for SBP >150. Dilaudid and Morphine for pain management. Nitro SL. GI prophylactics. IV antibiotics as ordered. Additional plan as per the hospital course. A total of 45 minutes was spent reviewing the patient record, examining the patient, making a diagnostic and therapeutic plan, discussing this plan with medical personnel, following up on diagnostic studies and following the patient for clinical stability excluding any and all procedures. At least 50% of this time was spent in direct, [id number] contact. Plan discussed with: Patient RIO LINARES MD Jul 04, 2025 00:37
[2025-07-04 01:00] VITALS: BP 98/56; PULSE 74; RESP 18; TEMP 97.4; O2SAT 93
[2025-07-04 05:00] VITALS: BP 103/63; PULSE 68; RESP 18; TEMP 97.3; O2SAT 97
--- NOTE | 2025-07-04 06:25 | DVHPN2 ---
Progress Note Date Seen: Jul 04, 2025 Has the PT tested + for MRSA If YES, has PT been informed?: No Medical Necessity Reason Pt with a Central, PICC or Fol: No Subjective Review of Systems Pt feels much better. No longer feels bloated. Denies N/V, flatus or BM. Very minimal epigastric discomfort. Asked to call her daughter and discuss condition and plan of care. Objective vital signs Vital Sign Date Time Temp Pulse Resp B/P (MAP) Pulse Ox O2 Delivery O2 Flow Rate FiO2 07/04/25 05:00 97.3 68 18 103/63 (76) 97 97.3 07/03/25 20:00 Nasal Cannula* 2 28 Total Intake and Output 07/03/25 07/03/25 07/04/25 15:00 23:00 07:00 Intake Total 1000 ml 1000 ml 1100 ml Output Total 850 ml 400 ml Balance 1000 ml 150 ml 700 ml medications Current Medications Medications Dose Ordered Sig/Donaldo Route Start Time Stop Time Status Last Admin Dose Admin Diagnostic Test (Pha) 1 strip Q6HR 07/02/25 00:00 07/04/25 05:44 1 STRIP Insulin Human Regular Q6HR SC 07/02/25 00:00 07/03/25 11:11 4 UNITS Dextrose 50 ml UD PRN IV 07/01/25 22:00 Ondansetron HCl 4 mg Q4HPRN PRN IV 07/01/25 22:00 07/03/25 12:49 4 MG Hydralazine HCl 10 mg Q6HP PRN IV 07/01/25 22:00 Nitroglycerin 0.4 mg Q5MINP PRN SL 07/01/25 22:00 Hydromorphone HCl 0.4 mg Q4HPRN PRN IV 07/02/25 03:00 07/02/25 03:46 0.4 MG Pantoprazole Sodium 40 mg BID IV 07/02/25 10:00 07/03/25 21:29 40 MG Morphine Sulfate 2 mg Q4HPRN PRN IV 07/02/25 17:30 07/03/25 13:08 2 MG Heparin Sodium (Porcine) 5,000 units Q12HR SC 07/03/25 10:00 07/03/25 21:32 5,000 UNITS Piperacillin Sod/ Tazobactam Sod 100 ml @ 25 mls/hr Q8H IV 07/03/25 14:00 07/04/25 05:46 25 MLS/HR Sodium Chloride 1,000 ml @ 125 mls/hr Q8H IV 07/03/25 12:45 07/04/25 05:39 125 MLS/HR Examination GENERAL: She was sitting in bed. She is calm, pleasant and in no distress She remains afebrile with stable vital signs NEUROLOGIC: Grossly intact. Alert, awake, and oriented x 3. HEART: Normal heart rate and normotensive. Has had some episodes of borderline low/normal BP LUNGS: Effortless breathing. Normal respiratory rate and oxygen saturation. Receiving supplemental oxygen via nasal cannula. ABDOMEN: Soft, non distended and minimal epigastric tenderness. No palpable masses, hernias, or visceromegaly. No peritoneal signs or rebound. NG tube in place connected to continuous suction at 80 mmHg. Bilious fluid within collection canister. EXTREMITIES: No edema or tenderness laboratory and microbiology Laboratory Tests 07/03/25 05:52 Test 07/03/25 05:52 Range/Units Serum Glucose 226 H 74-106 mg/dL Microbiology Date/Time Source Procedure Growth Status 07/02/25 04:15 Nose MRSA Screen - Final Complete Problem List/Assessment/Plan Problems(with codes): (1) Small bowel obstruction Problem List/Assessment/Plan Continue NPO, NGT, IVF, DVT and GI prophylaxis. AXR reviewed. Pending AM Labs. SBS. Aspiration precautions. If pt condition does not improve or persists will need surgical intervention, tentatively scheduled for Wednesday. Pending cardiology preoperative workup. Plan discussed with: Other (Pt and RN) My Orders My Orders Orders - CARLI HERNANDEZ MD Procedure Category Date Status Time Small Bowel Series-W XY 07/04/25 Logged Gastrogra 06:18 Strict Aspiration JONEL 07/04/25 Verified Precautions 06:19 CARLI HERNANDEZ MD Jul 04, 2025 06:25
[2025-07-04 06:44] LABS: Hematocrit 35.8 % (36.0-46.0); Hemoglobin 12.3 g/dL (12.2-16.2); Mean Corpuscular Hemoglobin 29.3 pg (28.0-32.0); Mean Corpuscular Volume 85.4 fL (80.0-100.0); Nucleated Red Blood Cells % 0.0 %
[2025-07-04 06:57] LABS: Chloride 105 mmol/L (98-107); Potassium 4.7 mmol/L (3.5-5.1); Sodium 139 mmol/L (136-145)
--- NOTE | 2025-07-04 07:02 | DVHPN2 ---
Progress Note Date Seen: Jul 04, 2025 Has the PT tested + for MRSA If YES, has PT been informed?: No Medical Necessity Reason Pt with a Central, PICC or Fol: No Subjective Patient reports: Feels better Review of Systems: CVS:Normal, RESPIRATORY:Normal, GI:Abnormal Objective vital signs Vital Sign Date Time Temp Pulse Resp B/P (MAP) Pulse Ox O2 Delivery O2 Flow Rate FiO2 07/04/25 05:00 97.3 68 18 103/63 (76) 97 97.3 07/03/25 20:00 Nasal Cannula* 2 28 Total Intake and Output 07/03/25 07/03/25 07/04/25 15:00 23:00 07:00 Intake Total 1000 ml 1000 ml 1100 ml Output Total 850 ml 400 ml Balance 1000 ml 150 ml 700 ml medications Current Medications Medications Dose Ordered Sig/Donaldo Route Start Time Stop Time Status Last Admin Dose Admin Diagnostic Test (Pha) 1 strip Q6HR 07/02/25 00:00 07/04/25 05:44 1 STRIP Insulin Human Regular Q6HR SC 07/02/25 00:00 07/03/25 11:11 4 UNITS Dextrose 50 ml UD PRN IV 07/01/25 22:00 Ondansetron HCl 4 mg Q4HPRN PRN IV 07/01/25 22:00 07/03/25 12:49 4 MG Hydralazine HCl 10 mg Q6HP PRN IV 07/01/25 22:00 Nitroglycerin 0.4 mg Q5MINP PRN SL 07/01/25 22:00 Hydromorphone HCl 0.4 mg Q4HPRN PRN IV 07/02/25 03:00 07/02/25 03:46 0.4 MG Pantoprazole Sodium 40 mg BID IV 07/02/25 10:00 07/03/25 21:29 40 MG Morphine Sulfate 2 mg Q4HPRN PRN IV 07/02/25 17:30 07/03/25 13:08 2 MG Heparin Sodium (Porcine) 5,000 units Q12HR SC 07/03/25 10:00 07/03/25 21:32 5,000 UNITS Piperacillin Sod/ Tazobactam Sod 100 ml @ 25 mls/hr Q8H IV 07/03/25 14:00 07/04/25 05:46 25 MLS/HR Sodium Chloride 1,000 ml @ 125 mls/hr Q8H IV 07/03/25 12:45 07/04/25 05:39 125 MLS/HR Examination: GENERAL:Normal, LUNGS:Normal, ABDOMEN:Normal laboratory and microbiology Laboratory Tests 07/04/25 04:13 Test 07/04/25 04:13 Range/Units Serum Glucose Pending Problem List/Assessment/Plan Problem List/Assessment/Plan 1) SBO 2) HTN 3) HLD 4) DM 5) UTI plan; NPO, NG suction, IVF hydration, DVT ppx, abdominal film from yesterday still shows dilated loops of small bowel, surgery on board and ordered SBFT for today, surgery to plan for OR wednesday tentatively if her condition does not improve, echo and cardiology consult for clearance in the event she has to be taken to surgery, WBC nml this AM, continue all care, will follow along, i updated her daughter Cherry regarding POC and she understands Plan discussed with: Other (n) DAY SALAS MD Jul 04, 2025 07:02
[2025-07-04 07:03] LABS: BUN/Creatinine Ratio 20.2 (10.0-20.0)
[2025-07-04 07:09] LABS: Blood Urea Nitrogen 26 mg/dL (9-23); Calcium 8.2 mg/dL (8.7-10.4); Glucose 132 mg/dL (74-106)
[2025-07-04 07:10] LABS: Anion Gap 8 (5-15); Carbon Dioxide 26 mmol/L (20-31)
[2025-07-04 08:00] VITALS: PULSE 83; RESP 13; O2SAT 92
[2025-07-04 08:42] VITALS: BP 129/66; PULSE 83; RESP 13; TEMP 97.4; O2SAT 92
[2025-07-04] MEDS: GASTROGRAFIN 120 ML SOL ONE (10:26)
[2025-07-04 16:54] VITALS: BP 156/79; PULSE 83; RESP 13; TEMP 97.7; O2SAT 16; O2SAT 97
[2025-07-04] MEDS: hydrALAZINE HCL 20 MG/ML VL IV PRN (17:33)
[2025-07-04 20:00] VITALS: PULSE 92; RESP 16; O2SAT 95
--- NOTE | 2025-07-04 23:58 | DVHPN2 ---
Progress Note - Dictate Date Seen: Jul 04, 2025 Has the PT tested + for MRSA If YES, has PT been informed?: No Medical Necessity Reason Pt with a Central, PICC or Fol: No Subjective Patient was seen and evaluated in follow up. Patient reports feeling better today. The patient is tentatively scheduled for surgery on Friday 07/06. BUN 26, JACQUARD LOOM FIXER 1.29, CA 8.2. vital signs Vital Sign Date Time Temp Pulse Resp B/P (MAP) Pulse Ox O2 Delivery O2 Flow Rate FiO2 07/04/25 17:40 83 13 156/79 07/04/25 16:54 97.7 97 97.7 07/04/25 08:00 Nasal Cannula* 2 28 Total Intake and Output 07/03/25 07/03/25 07/04/25 15:00 23:00 07:00 Intake Total 1000 ml 1000 ml 1100 ml Output Total 850 ml 400 ml Balance 1000 ml 150 ml 700 ml medications Current Medications Medications Dose Ordered Sig/Donaldo Route Start Time Stop Time Status Last Admin Dose Admin Diagnostic Test (Pha) 1 strip Q6HR 07/02/25 00:00 07/04/25 17:40 1 STRIP Insulin Human Regular Q6HR SC 07/02/25 00:00 07/03/25 11:11 4 UNITS Dextrose 50 ml UD PRN IV 07/01/25 22:00 Ondansetron HCl 4 mg Q4HPRN PRN IV 07/01/25 22:00 07/04/25 12:04 4 MG Hydralazine HCl 10 mg Q6HP PRN IV 07/01/25 22:00 07/04/25 17:33 10 MG Nitroglycerin 0.4 mg Q5MINP PRN SL 07/01/25 22:00 Hydromorphone HCl 0.4 mg Q4HPRN PRN IV 07/02/25 03:00 07/02/25 03:46 0.4 MG Pantoprazole Sodium 40 mg BID IV 07/02/25 10:00 07/04/25 09:51 40 MG Morphine Sulfate 2 mg Q4HPRN PRN IV 07/02/25 17:30 07/04/25 12:17 2 MG Heparin Sodium (Porcine) 5,000 units Q12HR SC 07/03/25 10:00 07/04/25 09:50 5,000 UNITS Piperacillin Sod/ Tazobactam Sod 100 ml @ 25 mls/hr Q8H IV 07/03/25 14:00 07/04/25 14:04 25 MLS/HR Sodium Chloride 1,000 ml @ 125 mls/hr Q8H IV 07/03/25 12:45 07/04/25 05:39 125 MLS/HR objective GENERAL: Alert and oriented x 3. No acute distress. EYES: PERRL, EOMI. Anicteric. HENT: Moist mucous membranes. LUNGS: Clear to auscultation bilaterally. CARDIOVASCULAR: Regular rate and rhythm. ABDOMEN: Soft, diffuse epigastric TTP. EXTREMITIES: No edema. NEUROLOGIC: No focal neurological deficits. SKIN: Warm, dry. laboratory and microbiology Laboratory Tests 07/04/25 04:13 Test 07/04/25 04:13 Range/Units Serum Glucose 132 H 74-106 mg/dL Problem List SBO. HTN. HLD. DM. UTI. Assessment/Plan Continued all current supportive medical care. Echocardiogram. IV Hydralazine for SBP >150. Morphine for pain management. Nitro SL. GI prophylactics. IV antibiotics as ordered. Additional plan as per the hospital course. Plan discussed with: Patient RIO LINARES MD Jul 04, 2025 18:01
--- NOTE | 2025-07-05 05:37 | DVH ---
Exam: XY KUB ABDOMEN SINGLE VIEW Indication: SBO Comparison: XY SMALL BOWEL SERIES-W GASTROGRA on DOS: 07/04/25, XY KUB ABDOMEN SINGLE VIEW on DOS: 06/06 Technique: 1 radiographic views of the abdomen. Findings: Gastrostomy tube overlies the epigastrium. Enteric catheter in satisfactory position. Nonspecific bowel-gas pattern. Enteric contrast is present in the colon. There is no definite evidence for pneumoperitoneum. No abnormal calcifications noted. Impression: Nonspecific bowel-gas pattern.
--- NOTE | 2025-07-05 06:07 | DVHPN2 ---
Progress Note Date Seen: Jul 05, 2025 Has the PT tested + for MRSA If YES, has PT been informed?: No Medical Necessity Reason Pt with a Central, PICC or Fol: No Subjective Review of Systems Pt denies abdomnial pain, nausea, vomiting, distention, passing flatus or BM. Per RN, patient had 1.3L of fluid output from NGT after SBS. Could not describe nature of fluid as it occurred before her shift and it was given to her on signout report. Overnight had 300 mL greenish tinged fluid from OGT. Objective vital signs Vital Sign Date Time Temp Pulse Resp B/P (MAP) Pulse Ox O2 Delivery O2 Flow Rate FiO2 07/04/25 22:00 88 16 108/56 07/04/25 20:00 95 Room Air* 0 21 07/04/25 16:54 97.7 97.7 Total Intake and Output 07/04/25 07/04/25 07/05/25 15:00 23:00 07:00 Intake Total 100 ml 100 ml Output Total 1450 ml 300 ml Balance 100 ml -1350 ml -300 ml medications Current Medications Medications Dose Ordered Sig/Donaldo Route Start Time Stop Time Status Last Admin Dose Admin Diagnostic Test (Pha) 1 strip Q6HR 07/02/25 00:00 07/05/25 00:00 1 STRIP Insulin Human Regular Q6HR SC 07/02/25 00:00 07/03/25 11:11 4 UNITS Dextrose 50 ml UD PRN IV 07/01/25 22:00 Ondansetron HCl 4 mg Q4HPRN PRN IV 07/01/25 22:00 07/04/25 12:04 4 MG Hydralazine HCl 10 mg Q6HP PRN IV 07/01/25 22:00 07/04/25 17:33 10 MG Nitroglycerin 0.4 mg Q5MINP PRN SL 07/01/25 22:00 Hydromorphone HCl 0.4 mg Q4HPRN PRN IV 07/02/25 03:00 07/02/25 03:46 0.4 MG Pantoprazole Sodium 40 mg BID IV 07/02/25 10:00 07/04/25 21:12 40 MG Morphine Sulfate 2 mg Q4HPRN PRN IV 07/02/25 17:30 07/04/25 21:30 2 MG Heparin Sodium (Porcine) 5,000 units Q12HR SC 07/03/25 10:00 07/04/25 21:13 5,000 UNITS Piperacillin Sod/ Tazobactam Sod 100 ml @ 25 mls/hr Q8H IV 07/03/25 14:00 07/05/25 05:06 25 MLS/HR Sodium Chloride 1,000 ml @ 125 mls/hr Q8H IV 07/03/25 12:45 07/05/25 05:06 125 MLS/HR Examination GENERAL: She was laying in bed. She is calm, pleasant and in no distress She remains afebrile with stable vital signs NEUROLOGIC: Grossly intact. Alert, awake, and oriented x 3. HEART: Normal heart rate and normotensive. Has had some episodes of hypertension LUNGS: Effortless breathing. Normal respiratory rate and oxygen saturation. Receiving supplemental oxygen via nasal cannula. ABDOMEN: Soft, mildly distended and nontender. No palpable masses, hernias, or visceromegaly. No peritoneal signs or rebound. NG tube in place connected to continuous suction at 80 mmHg. scant clear bilious tinged fluid within collection canister. EXTREMITIES: No edema or tenderness laboratory and microbiology Laboratory Tests 07/04/25 04:13 Test 07/04/25 04:13 Range/Units Serum Glucose 132 H 74-106 mg/dL Microbiology Date/Time Source Procedure Growth Status 07/03/25 11:56 Voided Urine Urine Culture - Preliminary Resulted 07/03/25 09:00 Blood Blood Culture - Preliminary NO GROWTH AFTER 24 HOURS OF INCUBATION. Resulted 07/02/25 04:15 Nose MRSA Screen - Final Complete Labs and/or images reviewed: Labs reviewed by me, Image(s) reviewed by me Problem List/Assessment/Plan Problems(with codes): (1) Small bowel obstruction Problem List/Assessment/Plan Continue NPO, NGT, IVF, DVT and GI prophylaxis. SBS reviewed. Contrast opacified dilated loops of SB. C/W with SBO. No contrast in colon. F/U AXR contrast within colon, no residual bowel dilatation. Radiographically resolved SBO Tentatively schedule for surgical intervention tomorrow.Uncertain if she will be a candidate for laparoscopic approach, depends on abdominal condition (distention vs non distended), if distended, will require exlap, possible lysis of adhesions, possible bowel resection. Intraoperative finding will dictate end result of procedure. Procedure, risks and benefits explained in a detailed and extensive fashion, Pt understood and agreed to proceed. Will reevaluate tomorrow morning. Pending AM Labs.Repeat AXR tomorrow. Aspiration precautions. Pending cardiology preoperative workup.Pt asked to discuss with Damien Farley (Daughter). Called and spoke to her yesterday, Informed about condition and plan of care. She understood and agreed. Plan discussed with: Other (Pt, RN, daughter) My Orders My Orders Orders - CARLI HERNANDEZ MD Procedure Category Date Status Time Small Bowel Series-W XY 07/04/25 Taken Gastrogra 06:18 Strict Aspiration JONEL 07/04/25 In Process Precautions 06:19 Kub Abdomen Single XY 07/05/25 Resulted View 04:00 CARLI HERNANDEZ MD Jul 05, 2025 06:06
[2025-07-05 06:50] LABS: Hematocrit 35.6 % (36.0-46.0); Hemoglobin 12.4 g/dL (12.2-16.2); Mean Corpuscular Hemoglobin 29.6 pg (28.0-32.0); Mean Corpuscular Volume 84.9 fL (80.0-100.0); Nucleated Red Blood Cells % 0.0 %
[2025-07-05 06:55] LABS: Chloride 107 mmol/L (98-107); Potassium 4.2 mmol/L (3.5-5.1); Sodium 142 mmol/L (136-145)
[2025-07-05 06:56] LABS: Anion Gap 12 (5-15); Carbon Dioxide 23 mmol/L (20-31)
[2025-07-05 06:58] LABS: Calcium 8.1 mg/dL (8.7-10.4)
[2025-07-05 07:01] LABS: BUN/Creatinine Ratio 35.0 (10.0-20.0)
[2025-07-05 07:08] LABS: Blood Urea Nitrogen 36 mg/dL (9-23); Glucose 126 mg/dL (74-106)
[2025-07-05 08:00] VITALS: PULSE 67; RESP 18; O2SAT 95
[2025-07-05 09:00] VITALS: BP 133/69; PULSE 67; RESP 18; TEMP 97.8; O2SAT 95
--- NOTE | 2025-07-05 11:53 | DVHPN2 ---
Progress Note - Dictate Date Seen: Jul 05, 2025 Has the PT tested + for MRSA If YES, has PT been informed?: No Medical Necessity Reason Pt with a Central, PICC or Fol: No Subjective Patient denies passing flatus or having a BM. Continues to note some abdominal discomfort. vital signs Vital Sign Date Time Temp Pulse Resp B/P (MAP) Pulse Ox O2 Delivery O2 Flow Rate FiO2 07/05/25 09:00 97.8 67 18 133/69 (90) 95 97.8 07/04/25 20:00 Room Air* 0 21 Total Intake and Output 07/04/25 07/04/25 07/05/25 14:59 22:59 06:59 Intake Total 100 ml 100 ml 1000 ml Output Total 1450 ml 300 ml Balance 100 ml -1350 ml 700 ml medications Current Medications Medications Dose Ordered Sig/Donaldo Route Start Time Stop Time Status Last Admin Dose Admin Diagnostic Test (Pha) 1 strip Q6HR 07/02/25 00:00 07/05/25 06:07 1 STRIP Insulin Human Regular Q6HR SC 07/02/25 00:00 07/03/25 11:11 4 UNITS Dextrose 50 ml UD PRN IV 07/01/25 22:00 Ondansetron HCl 4 mg Q4HPRN PRN IV 07/01/25 22:00 07/04/25 12:04 4 MG Hydralazine HCl 10 mg Q6HP PRN IV 07/01/25 22:00 07/04/25 17:33 10 MG Nitroglycerin 0.4 mg Q5MINP PRN SL 07/01/25 22:00 Hydromorphone HCl 0.4 mg Q4HPRN PRN IV 07/02/25 03:00 07/02/25 03:46 0.4 MG Pantoprazole Sodium 40 mg BID IV 07/02/25 10:00 07/05/25 09:02 40 MG Morphine Sulfate 2 mg Q4HPRN PRN IV 07/02/25 17:30 07/04/25 21:30 2 MG Heparin Sodium (Porcine) 5,000 units Q12HR SC 07/03/25 10:00 07/05/25 09:07 5,000 UNITS Piperacillin Sod/ Tazobactam Sod 100 ml @ 25 mls/hr Q8H IV 07/03/25 14:00 07/05/25 05:06 25 MLS/HR Sodium Chloride 1,000 ml @ 125 mls/hr Q8H IV 07/03/25 12:45 07/05/25 05:06 125 MLS/HR objective General appearance: No acute distress Respiratory: Lungs clear to auscultation. No wheezing, crackles Cardiovascular: Regular rate and rhythm, no murmurs. No edema Abdomen: Soft, distended. Hypoactive bowel sounds MSK: Normal range of motion. Neuro: Alert, no neurological deficits Psych: Appropriate mood and affect. laboratory and microbiology Laboratory Tests 07/05/25 06:24 Test 07/05/25 06:24 Range/Units Serum Glucose 126 H 74-106 mg/dL Problem List 1) SBO 2) HTN 3) HLD 4) DM 5) UTI PLAN: -Continue n.p.o. with NG tube to low intermittent suction - Small bowel follow-through does not show contrast in the colon. Radiographically appears to have resolved SBO. Scheduled for surgical intervention on 07/06. Plan to have repeat abdominal x-ray in a.m. to confirm. Risks and benefits discussed with patient and surgeon. -Continue zosyn -ICS for DM - Cardiology clearance completed. -Continue DVT prophylaxis -Daily CBC and BMP -Full Code Plan discussed with: Patient LESTERAlisonOBEDBECKY Webb DO Jul 05, 2025 11:53
[2025-07-05 14:00] VITALS: BP 136/70; PULSE 67; RESP 18; TEMP 98.3; O2SAT 93
[2025-07-05 17:00] VITALS: BP 146/70; PULSE 68; RESP 17; TEMP 98; O2SAT 95
[2025-07-05 20:00] VITALS: PULSE 62; RESP 17; O2SAT 95
[2025-07-05 21:00] VITALS: BP 135/69; PULSE 62; RESP 17; TEMP 97.7; O2SAT 95
--- NOTE | 2025-07-05 22:02 | DVHPN2 ---
Progress Note - Dictate Date Seen: Jul 05, 2025 Has the PT tested + for MRSA If YES, has PT been informed?: No Medical Necessity Reason Pt with a Central, PICC or Fol: No Subjective Patient was seen and evaluated in follow up. Overnight the patient had 300 mL greenish tinged fluid from OGT and 1.3L of fluid output from NGT after SBS. Patient is complaining of abdominal discomfort. BUN 36, [employer]ICE 1.03, CA 8.1. KUB showed nonspecific bowel-gas pattern. vital signs Vital Sign Date Time Temp Pulse Resp B/P (MAP) Pulse Ox O2 Delivery O2 Flow Rate FiO2 07/05/25 09:00 97.8 67 18 133/69 (90) 95 97.8 07/04/25 20:00 Room Air* 0 21 Total Intake and Output 07/04/25 07/04/25 07/05/25 15:00 23:00 07:00 Intake Total 100 ml 100 ml 1000 ml Output Total 1450 ml 300 ml Balance 100 ml -1350 ml 700 ml medications Current Medications Medications Dose Ordered Sig/Donaldo Route Start Time Stop Time Status Last Admin Dose Admin Diagnostic Test (Pha) 1 strip Q6HR 07/02/25 00:00 07/05/25 06:07 1 STRIP Insulin Human Regular Q6HR SC 07/02/25 00:00 07/03/25 11:11 4 UNITS Dextrose 50 ml UD PRN IV 07/01/25 22:00 Ondansetron HCl 4 mg Q4HPRN PRN IV 07/01/25 22:00 07/04/25 12:04 4 MG Hydralazine HCl 10 mg Q6HP PRN IV 07/01/25 22:00 07/04/25 17:33 10 MG Nitroglycerin 0.4 mg Q5MINP PRN SL 07/01/25 22:00 Hydromorphone HCl 0.4 mg Q4HPRN PRN IV 07/02/25 03:00 07/02/25 03:46 0.4 MG Pantoprazole Sodium 40 mg BID IV 07/02/25 10:00 07/05/25 09:02 40 MG Morphine Sulfate 2 mg Q4HPRN PRN IV 07/02/25 17:30 07/04/25 21:30 2 MG Heparin Sodium (Porcine) 5,000 units Q12HR SC 07/03/25 10:00 07/05/25 09:07 5,000 UNITS Piperacillin Sod/ Tazobactam Sod 100 ml @ 25 mls/hr Q8H IV 07/03/25 14:00 07/05/25 05:06 25 MLS/HR Sodium Chloride 1,000 ml @ 125 mls/hr Q8H IV 07/03/25 12:45 07/05/25 05:06 125 MLS/HR objective GENERAL: Alert and oriented x 3. No acute distress. EYES: PERRL, EOMI. Anicteric. HENT: Moist mucous membranes. LUNGS: Clear to auscultation bilaterally. CARDIOVASCULAR: Regular rate and rhythm. ABDOMEN: Soft, diffuse epigastric TTP. EXTREMITIES: No edema. NEUROLOGIC: No focal neurological deficits. SKIN: Warm, dry. laboratory and microbiology Laboratory Tests 07/05/25 06:24 Test 07/05/25 06:24 Range/Units Serum Glucose 126 H 74-106 mg/dL Problem List SBO. HTN. HLD. DM. UTI. Assessment/Plan Continued all current supportive medical care. Echocardiogram. Nitro SL. GI prophylactics. IV antibiotics as ordered. Additional plan as per the hospital course. Plan discussed with: Patient RIO LINARES MD Jul 05, 2025 12:36
[2025-07-06] VITALS (8 sets, daily range): BP systolic 121–152; BP diastolic 61–75; PULSE 55–67; RESP 12–18; TEMP 97–98.4; O2SAT 95–99
[2025-07-06 07:45] LABS: Hematocrit 37.3 % (36.0-46.0); Hemoglobin 13.0 g/dL (12.2-16.2); Mean Corpuscular Hemoglobin 29.4 pg (28.0-32.0); Mean Corpuscular Volume 84.5 fL (80.0-100.0); Nucleated Red Blood Cells % 0.0 %
[2025-07-06 07:54] LABS: Anion Gap 12 (5-15); Carbon Dioxide 22 mmol/L (20-31); Potassium 3.7 mmol/L (3.5-5.1); Sodium 142 mmol/L (136-145)
[2025-07-06 07:59] LABS: Calcium 8.5 mg/dL (8.7-10.4); Chloride 108 mmol/L (98-107)
[2025-07-06 08:00] LABS: Glucose 93 mg/dL (74-106)
[2025-07-06 08:01] LABS: BUN/Creatinine Ratio 20.5 (10.0-20.0); Blood Urea Nitrogen 17 mg/dL (9-23)
--- NOTE | 2025-07-06 09:01 | DVHPN2 ---
Progress Note Date Seen: Jul 06, 2025 Has the PT tested + for MRSA If YES, has PT been informed?: No Medical Necessity Reason Pt with a Central, PICC or Fol: No Subjective Review of Systems Pt was seen earlier his morning. She stated she had several BM and is passing flatus. Denied bloating, N/V. Admitted to mild epigastric pain. RN informed me last night stating pt had had 3 BM and was passing flatus. Daughter wanted me to call her and update her with plan of care. She was called last night and informed that her mother was demonstrating signs of clinical and radiological improvement. However, she would be evaluated in the morning to determine whether she would still require surgery. She understood and agreed with plan of care. Objective vital signs Vital Sign Date Time Temp Pulse Resp B/P (MAP) Pulse Ox O2 Delivery O2 Flow Rate FiO2 07/06/25 05:00 97.8 55 17 121/61 (81) 99 97.8 07/05/25 20:00 Room Air* 0 21 Total Intake and Output 07/05/25 07/05/25 07/06/25 15:00 23:00 07:00 Intake Total 100 ml 850 ml 0 ml Balance 100 ml 850 ml 0 ml medications Current Medications Medications Dose Ordered Sig/Donaldo Route Start Time Stop Time Status Last Admin Dose Admin Diagnostic Test (Pha) 1 strip Q6HR 07/02/25 00:00 07/06/25 05:33 1 STRIP Insulin Human Regular Q6HR SC 07/02/25 00:00 07/03/25 11:11 4 UNITS Dextrose 50 ml UD PRN IV 07/01/25 22:00 Ondansetron HCl 4 mg Q4HPRN PRN IV 07/01/25 22:00 07/04/25 12:04 4 MG Hydralazine HCl 10 mg Q6HP PRN IV 07/01/25 22:00 07/04/25 17:33 10 MG Nitroglycerin 0.4 mg Q5MINP PRN SL 07/01/25 22:00 Hydromorphone HCl 0.4 mg Q4HPRN PRN IV 07/02/25 03:00 07/02/25 03:46 0.4 MG Pantoprazole Sodium 40 mg BID IV 07/02/25 10:00 07/05/25 22:04 40 MG Morphine Sulfate 2 mg Q4HPRN PRN IV 07/02/25 17:30 07/04/25 21:30 2 MG Heparin Sodium (Porcine) 5,000 units Q12HR SC 07/03/25 10:00 07/05/25 22:11 5,000 UNITS Piperacillin Sod/ Tazobactam Sod 100 ml @ 25 mls/hr Q8H IV 07/03/25 14:00 07/06/25 05:33 25 MLS/HR Sodium Chloride 1,000 ml @ 125 mls/hr Q8H IV 07/03/25 12:45 07/06/25 05:32 125 MLS/HR Examination GENERAL: She was laying in bed. She is calm, pleasant and in no distress She remains afebrile with stable vital signs NEUROLOGIC: Grossly intact. Alert, awake, and oriented x 3. HEART: Normal heart rate with episodes of hypertension LUNGS: Effortless breathing. Normal respiratory rate and oxygen saturation. Receiving supplemental oxygen via nasal cannula. ABDOMEN: Soft, seems mildly distended and nontender. No palpable masses, hernias, or visceromegaly. No peritoneal signs or rebound. NG tube in place connected to continuous suction at 80 mmHg. scant clear bilious tinged fluid within collection canister. EXTREMITIES: No edema or tenderness laboratory and microbiology Laboratory Tests 07/06/25 06:31 Test 07/06/25 06:31 Range/Units Serum Glucose 93 74-106 mg/dL Microbiology Date/Time Source Procedure Growth Status 07/03/25 11:56 Voided Urine Urine Culture - Final Complete 07/03/25 09:00 Blood Blood Culture - Preliminary NO GROWTH AFTER 48 HOURS OF INCUBATION. Resulted 07/02/25 04:15 Nose MRSA Screen - Final Complete Labs and/or images reviewed: Labs reviewed by me, Image(s) reviewed by me Problem List/Assessment/Plan Problems(with codes): (1) Small bowel obstruction Problem List/Assessment/Plan AXR reviewed. No evidence of SBO. Pending official report.Clinically and radiographically improved. Clamp NGT. CLD trial, aspiration precautions, Advance to solid diet and HLIVF if tolerates CLD. Continue DVT and GI prophylaxis. If tolerates solid diet, may be discharged home from surgical standpoint Plan discussed with: Other (Pt, Dr. Sahni and RN) My Orders My Orders Orders - CARLI HERNANDEZ MD Procedure Category Date Status Time Kub Abdomen Single XY 07/06/25 Taken View 07:18 Dietary Evaluation Review Comments: 1) If patient remains NPO > 7 days, consider EN/TPN to meet at least 75% estimated daily needs 2) Advance to 60g CCHO cardiac diet when medically feasible 3) Refer to outpatient RD/CD[facility] for weight management 4) Follow-up with gastroenterology 5) Continue to monitor I&O, labs, and skin integrity Expected Outcomes/Goals: 1) patient to receive nutritional support within 7 days of NPO status 2) GI symptoms to resolve 3) diet to advance 4) gradual wt loss 5) f/u in 3-5 days CARLI HERNANDEZ MD Jul 06, 2025 09:01
--- NOTE | 2025-07-06 09:09 | DVH ---
Exam: XY KUB ABDOMEN SINGLE VIEW Indication: SBO Comparison: XY KUB ABDOMEN SINGLE VIEW on DOS: 07/05/25, XY SMALL BOWEL SERIES-W GASTROGRA on DOS: 07/04/25, XY KUB ABDOMEN SINGLE VIEW on DOS: 07/03/25 Technique: 1 radiographic views of the abdomen. Findings: Enteric catheter in the stomach. Enteric contrast in the colon. Nonobstructive bowel gas pattern noted. There is no definite evidence for pneumoperitoneum. No abnormal calcifications noted. Impression: Nonobstructive bowel gas pattern noted.
--- NOTE | 2025-07-06 11:15 | DVHPN2 ---
Progress Note - Dictate Date Seen: Jul 06, 2025 Has the PT tested + for MRSA If YES, has PT been informed?: No Medical Necessity Reason Pt with a Central, PICC or Fol: No Subjective Patient notes she passed flatus and had 3 bowel movements yesterday afternoon. Her abdominal distention has improved. vital signs Vital Sign Date Time Temp Pulse Resp B/P (MAP) Pulse Ox O2 Delivery O2 Flow Rate FiO2 07/06/25 09:00 97.9 60 17 152/62 (92) 95 97.9 07/06/25 08:00 Room Air* 0 21 Total Intake and Output 07/05/25 07/05/25 07/06/25 15:00 23:00 07:00 Intake Total 100 ml 850 ml 0 ml Balance 100 ml 850 ml 0 ml medications Current Medications Medications Dose Ordered Sig/Donaldo Route Start Time Stop Time Status Last Admin Dose Admin Diagnostic Test (Pha) 1 strip Q6HR 07/02/25 00:00 07/06/25 05:33 1 STRIP Insulin Human Regular Q6HR SC 07/02/25 00:00 07/03/25 11:11 4 UNITS Dextrose 50 ml UD PRN IV 07/01/25 22:00 Ondansetron HCl 4 mg Q4HPRN PRN IV 07/01/25 22:00 07/04/25 12:04 4 MG Hydralazine HCl 10 mg Q6HP PRN IV 07/01/25 22:00 07/04/25 17:33 10 MG Nitroglycerin 0.4 mg Q5MINP PRN SL 07/01/25 22:00 Hydromorphone HCl 0.4 mg Q4HPRN PRN IV 07/02/25 03:00 07/02/25 03:46 0.4 MG Pantoprazole Sodium 40 mg BID IV 07/02/25 10:00 07/06/25 09:18 40 MG Morphine Sulfate 2 mg Q4HPRN PRN IV 07/02/25 17:30 07/04/25 21:30 2 MG Heparin Sodium (Porcine) 5,000 units Q12HR SC 07/03/25 10:00 07/06/25 09:26 5,000 UNITS Piperacillin Sod/ Tazobactam Sod 100 ml @ 25 mls/hr Q8H IV 07/03/25 14:00 07/06/25 05:33 25 MLS/HR Sodium Chloride 1,000 ml @ 125 mls/hr Q8H IV 07/03/25 12:45 07/06/25 05:32 125 MLS/HR objective General appearance: No acute distress Respiratory: Lungs clear to auscultation. No wheezing, crackles Cardiovascular: Regular rate and rhythm, no murmurs. No edema Abdomen: Soft, non-distended MSK: Normal range of motion. Neuro: Alert, no neurological deficits Psych: Appropriate mood and affect. laboratory and microbiology Laboratory Tests 07/06/25 06:31 Test 07/06/25 06:31 Range/Units Serum Glucose 93 74-106 mg/dL Problem List 1) SBO 2) HTN 3) HLD 4) DM 5) UTI PLAN: -Per general surgery, diet to be started with clears and advanced to full liquid as tolerated. Will plan to remove NG tube if tolerated and advance diet further. Plan to monitor overnight with anticipated DC in AM. -Continue zosyn -ICS for DM - Cardiology clearance completed. -Continue DVT prophylaxis -Daily CBC and BMP -Full Code Dietary Evaluation Review Comments: 1) If patient remains NPO > 7 days, consider EN/TPN to meet at least 75% estimated daily needs 2) Advance to 60g CCHO cardiac diet when medically feasible 3) Refer to outpatient RD/[facility] for weight management 4) Follow-up with gastroenterology 5) Continue to monitor I&O, labs, and skin integrity Expected Outcomes/Goals: 1) patient to receive nutritional support within 7 days of NPO status 2) GI symptoms to resolve 3) diet to advance 4) gradual wt loss 5) f/u in 3-5 days Plan discussed with: Patient BECKY LIMON Jul 06, 2025 11:15
--- NOTE | 2025-07-06 23:18 | DVHPN2 ---
Progress Note - Dictate Date Seen: Jul 06, 2025 Has the PT tested + for MRSA If YES, has PT been informed?: No Medical Necessity Reason Pt with a Central, PICC or Fol: No Subjective Patient was seen and evaluated in follow up. Patient reports having BMs and passing flatus. Patient's abdominal distention is improving. CA 8.5. KUB showed nonobstructive bowel gas pattern noted. vital signs Vital Sign Date Time Temp Pulse Resp B/P (MAP) Pulse Ox O2 Delivery O2 Flow Rate FiO2 07/06/25 09:00 97.9 60 17 152/62 (92) 95 97.9 07/06/25 08:00 Room Air* 0 21 Total Intake and Output 07/05/25 07/05/25 07/06/25 15:00 23:00 07:00 Intake Total 100 ml 850 ml 0 ml Balance 100 ml 850 ml 0 ml medications Current Medications Medications Dose Ordered Sig/Donaldo Route Start Time Stop Time Status Last Admin Dose Admin Diagnostic Test (Pha) 1 strip Q6HR 07/02/25 00:00 07/06/25 11:06 1 STRIP Insulin Human Regular Q6HR SC 07/02/25 00:00 07/06/25 11:10 3 UNITS Dextrose 50 ml UD PRN IV 07/01/25 22:00 Ondansetron HCl 4 mg Q4HPRN PRN IV 07/01/25 22:00 07/04/25 12:04 4 MG Hydralazine HCl 10 mg Q6HP PRN IV 07/01/25 22:00 07/04/25 17:33 10 MG Nitroglycerin 0.4 mg Q5MINP PRN SL 07/01/25 22:00 Hydromorphone HCl 0.4 mg Q4HPRN PRN IV 07/02/25 03:00 07/02/25 03:46 0.4 MG Pantoprazole Sodium 40 mg BID IV 07/02/25 10:00 07/06/25 09:18 40 MG Morphine Sulfate 2 mg Q4HPRN PRN IV 07/02/25 17:30 07/04/25 21:30 2 MG Heparin Sodium (Porcine) 5,000 units Q12HR SC 07/03/25 10:00 07/06/25 09:26 5,000 UNITS Piperacillin Sod/ Tazobactam Sod 100 ml @ 25 mls/hr Q8H IV 07/03/25 14:00 07/06/25 05:33 25 MLS/HR Sodium Chloride 1,000 ml @ 125 mls/hr Q8H IV 07/03/25 12:45 07/06/25 05:32 125 MLS/HR objective GENERAL: Alert and oriented x 3. No acute distress. EYES: PERRL, EOMI. Anicteric. HENT: Moist mucous membranes. LUNGS: Clear to auscultation bilaterally. CARDIOVASCULAR: Regular rate and rhythm. ABDOMEN: Soft, diffuse epigastric TTP. EXTREMITIES: No edema. NEUROLOGIC: No focal neurological deficits. SKIN: Warm, dry. laboratory and microbiology Laboratory Tests 07/06/25 06:31 Test 07/06/25 06:31 Range/Units Serum Glucose 93 74-106 mg/dL Problem List SBO. HTN. HLD. DM. UTI. Assessment/Plan Continued all current supportive medical care. Echocardiogram. Nitro SL. GI prophylactics. IV antibiotics as ordered. Additional plan as per the hospital course. Dietary Evaluation Review Comments: 1) If patient remains NPO > 7 days, consider EN/TPN to meet at least 75% estimated daily needs 2) Advance to 60g CCHO cardiac diet when medically feasible 3) Refer to outpatient RD/[facility] for weight management 4) Follow-up with gastroenterology 5) Continue to monitor I&O, labs, and skin integrity Expected Outcomes/Goals: 1) patient to receive nutritional support within 7 days of NPO status 2) GI symptoms to resolve 3) diet to advance 4) gradual wt loss 5) f/u in 3-5 days Plan discussed with: Patient RIO LINARES MD Jul 06, 2025 12:23
[2025-07-07 01:00] VITALS: BP 125/59; PULSE 60; RESP 14; TEMP 97.1; O2SAT 98
[2025-07-07 05:00] VITALS: BP 107/48; PULSE 57; RESP 18; TEMP 97.9; O2SAT 97
--- NOTE | 2025-07-07 05:15 | DVHPN2 ---
Progress Note Date Seen: Jul 07, 2025 Has the PT tested + for MRSA If YES, has PT been informed?: No Medical Necessity Reason Pt with a Central, PICC or Fol: No Subjective Review of Systems Pt feels retrosternal pressure and "it is hard to breath". Denies abdominal pain, n/v or bloating. Tolerated diet. Admitted to passing flatus and having normal BM Objective vital signs Vital Sign Date Time Temp Pulse Resp B/P (MAP) Pulse Ox O2 Delivery O2 Flow Rate FiO2 07/07/25 01:00 97.1 60 14 125/59 (81) 98 97.1 07/06/25 20:00 Room Air* 0 21 Total Intake and Output 07/06/25 07/06/25 07/07/25 15:00 23:00 07:00 Intake Total 100 ml 480 ml Balance 100 ml 480 ml medications Current Medications Medications Dose Ordered Sig/Donaldo Route Start Time Stop Time Status Last Admin Dose Admin Diagnostic Test (Pha) 1 strip Q6HR 07/02/25 00:00 07/06/25 23:02 1 STRIP Insulin Human Regular Q6HR SC 07/02/25 00:00 07/06/25 23:22 2 UNITS Dextrose 50 ml UD PRN IV 07/01/25 22:00 Ondansetron HCl 4 mg Q4HPRN PRN IV 07/01/25 22:00 07/04/25 12:04 4 MG Hydralazine HCl 10 mg Q6HP PRN IV 07/01/25 22:00 07/04/25 17:33 10 MG Nitroglycerin 0.4 mg Q5MINP PRN SL 07/01/25 22:00 Hydromorphone HCl 0.4 mg Q4HPRN PRN IV 07/02/25 03:00 07/02/25 03:46 0.4 MG Pantoprazole Sodium 40 mg BID IV 07/02/25 10:00 07/06/25 23:02 40 MG Morphine Sulfate 2 mg Q4HPRN PRN IV 07/02/25 17:30 07/04/25 21:30 2 MG Heparin Sodium (Porcine) 5,000 units Q12HR SC 07/03/25 10:00 07/06/25 23:01 5,000 UNITS Piperacillin Sod/ Tazobactam Sod 100 ml @ 25 mls/hr Q8H IV 07/03/25 14:00 07/06/25 23:02 25 MLS/HR Sodium Chloride 1,000 ml @ 125 mls/hr Q8H IV 07/03/25 12:45 07/06/25 05:32 125 MLS/HR Examination GENERAL: She was laying in bed. She is calm, pleasant and in no distress She remains afebrile with stable vital signs NEUROLOGIC: Grossly intact. Alert, awake, and oriented x 3. HEART: Normal heart rate with episodes of hypertension LUNGS: Effortless breathing. Normal respiratory rate and oxygen saturation. Receiving supplemental oxygen via nasal cannula. ABDOMEN: Soft, nondistended and nontender. No palpable masses, hernias, or visceromegaly. No peritoneal signs or rebound. EXTREMITIES: No edema or tenderness laboratory and microbiology Laboratory Tests 07/06/25 06:31 Test 07/06/25 06:31 Range/Units Serum Glucose 93 74-106 mg/dL Microbiology Date/Time Source Procedure Growth Status 07/03/25 11:56 Voided Urine Urine Culture - Final Complete 07/03/25 09:00 Blood Blood Culture - Preliminary NO GROWTH AFTER 72 HOURS OF INCUBATION. Resulted 07/02/25 04:15 Nose MRSA Screen - Final Complete Problem List/Assessment/Plan Problems(with codes): (1) Small bowel obstruction Problem List/Assessment/Plan AXR reviewed. No evidence of SBO. Official report concordant. SBO- clinically and radiographically improved. Continue DVT and GI prophylaxis. C/O dyspnea and chest pressure. EKG and trop. Cardiology to follow. May be discharged home from surgical standpoint when medically stable. Plan discussed with: Patient My Orders My Orders Orders - CARLI HERNANDEZ MD Procedure Category Date Status Time Kub Abdomen Single XY 07/06/25 Resulted View 07:18 Clamp Ngt ORDERS 07/06/25 Transmitted 08:45 Communication Order ORDERS 07/06/25 Transmitted 08:45 Communication Order ORDERS 07/06/25 Transmitted 09:02 Cardiac DIET 07/06/25 Transmitted Diet-2gna,Lofat,Lochol Dinner Dietary Evaluation Review Comments: 1) If patient remains NPO > 7 days, consider EN/TPN to meet at least 75% estimated daily needs 2) Advance to 60g CCHO cardiac diet when medically feasible 3) Refer to outpatient RD/CDCES for weight management 4) Follow-up with gastroenterology 5) Continue to monitor I&O, labs, and skin integrity Expected Outcomes/Goals: 1) patient to receive nutritional support within 7 days of NPO status 2) GI symptoms to resolve 3) diet to advance 4) gradual wt loss 5) f/u in 3-5 days CARLI HERNANDEZ MD Jul 07, 2025 05:15
[2025-07-07 05:40] LABS: Hematocrit 36.0 % (36.0-46.0); Hemoglobin 12.8 g/dL (12.2-16.2); Mean Corpuscular Hemoglobin 29.7 pg (28.0-32.0); Mean Corpuscular Volume 83.6 fL (80.0-100.0); Nucleated Red Blood Cells % 0.1 %
[2025-07-07 05:51] LABS: Anion Gap 12 (5-15); Carbon Dioxide 21 mmol/L (20-31); Potassium 3.9 mmol/L (3.5-5.1); Sodium 144 mmol/L (136-145)
[2025-07-07 05:53] LABS: Calcium 8.2 mg/dL (8.7-10.4); Chloride 111 mmol/L (98-107)
[2025-07-07 05:57] LABS: BUN/Creatinine Ratio 15.2 (10.0-20.0); Blood Urea Nitrogen 16 mg/dL (9-23)
[2025-07-07 06:09] LABS: Glucose 166 mg/dL (74-106)
[2025-07-07 08:00] VITALS: PULSE 58; RESP 16; O2SAT 97
[2025-07-07 09:00] VITALS: BP 103/55; PULSE 58; RESP 16; TEMP 99.2; O2SAT 97
[2025-07-07] MEDS: FAMOTIDINE 20 MG TAB PO ONE (10:28)
[2025-07-07] MEDS ORDERED: PANT40TA2 PO (12:40)
[2025-07-07] MEDS ORDERED: POLY335015 PO (12:42)
[2025-07-07 12:45] VITALS: BP 129/55; PULSE 62; RESP 16; TEMP 98.4; O2SAT 96
--- NOTE | 2025-07-07 12:57 | DVHDS2 ---
Discharge Summary Date of Admission Jul 01, 2025 at 21:54 Date of Discharge: Jul 07, 2025 Labs/Diagnostic Data: Laboratory Results Test 07/07/25 11:46 07/07/25 05:21 07/02/25 05:53 07/01/25 20:19 POC Glucose 188 mg/dl (70-106) White Blood Count 8.3 10^3/uL (4.4-10.8) Red Blood Count 4.31 10^6/uL (4.0-5.20) Hemoglobin 12.8 g/dL (12.2-16.2) Hematocrit 36.0 % (36.0-46.0) Mean Corpuscular Volume 83.6 fL (80.0-100.0) Mean Corpuscular Hemoglobin 29.7 pg (28.0-32.0) Mean Corpuscular Hemoglobin Concent 35.6 g/dL (32.0-36.0) Red Cell Distribution Width 13.5 % (11.8-14.3) Platelet Count 239 10^3/uL (140-450) Mean Platelet Volume 7.8 fL (6.9-10.8) Neutrophils (%) (Auto) 68.9 % (37.0-80.0) Lymphocytes (%) (Auto) 17.3 % (10.0-50.0) Monocytes (%) (Auto) 10.3 % (0.0-12.0) Eosinophils (%) (Auto) 3.1 % (0.0-7.0) Basophils (%) (Auto) 0.4 % (0.0-2.0) Neutrophils # (Auto) 5.7 10 ^3/uL (1.6-8.6) Lymphocytes # (Auto) 1.4 10 ^3/uL (0.4-5.4) Monocytes # (Auto) 0.8 10 ^3/uL (0-1.3) Eosinophils # (Auto) 0.3 10 ^3/uL (0-0.8) Basophils # (Auto) 0 10 ^3/uL (0-0.2) Nucleated Red Blood Cells 0.1 % Sodium Level 144 mmol/L (136-145) Potassium Level 3.9 mmol/L (3.5-5.1) Chloride Level 111 mmol/L (98-107) Carbon Dioxide Level 21 mmol/L (20-31) Anion Gap 12 (5-15) Blood Urea Nitrogen 16 mg/dL (9-23) Creatinine 1.05 mg/dL (0.550-1.02) Glomerular Filtration Rate Calc 53 mL/min (>90) BUN/Creatinine Ratio 15.2 (10.0-20.0) Serum Glucose 166 mg/dL (74-106) Calcium Level 8.2 mg/dL (8.7-10.4) Troponin I High Sensitivity 4 ng/L (</=34) Prothrombin Time 9.9 sec (9.3-11.8) Prothrombin Time INR 0.93 (0.9-1.15) Urine Color Yellow (Yellow) Urine Clarity Clear (Clear) Urine pH 6.0 (5.0-9.0) Urine Specific [place] 1.025 (1.001-1.035) Urine Protein Trace (Negative) Urine Ketones Negative (Negative) Urine Blood Negative /uL (Negative) Urine Nitrite Negative (Negative) Urine Bilirubin Negative (Negative) Urine Urobilinogen 2 mg/dL (Negative) Urine Leukocyte Esterase 1+ /uL (Negative) Urine RBC 2 /hpf (0 - 4) Urine Microscopic WBC 14 /HPF (0-5) Urine Squamous Epithelial Cells Few /hpf (<5) Urine Bacteria None seen /hpf (None Seen) Urine Hyaline Casts Few /lpf (0 - 2) Urine Mucus Few (None Seen) Urine Glucose 3+ mg/dL (Normal) Test 07/01/25 18:55 D-Dimer, Quantitative 1.16 mg/L FEU (0.0-0.49) Total Bilirubin 0.7 mg/dL (0.2-1.0) Aspartate Amino Transferase (AST) 14 U/L (13-40) Alanine Aminotransferase (ALT) 20 U/L (7-40) Alkaline Phosphatase 146 U/L (46-116) B-Type Natriuretic Peptide 69.21 pg/mL (0-100) Total Protein 7.4 g/dL (5.7-8.2) Albumin 4.6 g/dL (3.2-4.8) Lipase 34 U/L (12-53) Other Laboratory Tests 07/07/25 05:21 Brief Hx & Hospital Course: Patient is a 80-year-old female with past medical history of hypertension, type 2 diabetes, CVA, breast cancer, CKD, who presented with complaints of nausea and vomiting 1 day prior to admission. Patient was noted to have a small bowel obstruction. CT abdomen and pelvis confirmed this finding. General surgery was consulted. NG tube was placed to low intermittent suction. Patient was kept n.p.o. Small bowel follow-through series was done. Patient subsequently had bowel movements and was passing flatulence. Patient her diet advanced from clear liquid to full mechanical diet without any issue. She subsequently had additional bowel movements. She is cleared from general surgery for discharge. Of note, patient complained of epigastric pain that is worse when lying down. She confirms that she has significant GERD at home for which she takes sodium bicarbonate tablets. Patient was treated for UTI with Zosyn while hospitalized. No additional antibiotics were necessary on discharge to sufficient course completed. Patient was discharged on Protonix for her GERD and MiraLAX due to complaints of constipation that she has at home. Patient discharged in stable condition. Patient to follow-up with her PCP. Condition at Discharge: Good Final Diagnosis/Problems List Small Bowel Obstruction Secondary Diagnosis: 1) SBO 2) HTN 3) HLD 4) DM 5) UTI 6) CKD Discharge Disposition: Home Discharge Instruct/Medications Diet: Consistent carbohydrate Activity: No Restrictions, As Tolerated Follow Up/Referral: PCP Medications: Protonix for heartburn Miralax for constipation Scheduled Alendronate Sodium (Alendronate Sodium), 1 TAB PO QWEEKLY, (Reported) Amlodipine Besylate (Amlodipine Besylate), 2.5 MG PO DAILY, (Reported) Aspirin (Aspirin Low Dose), 81 MG PO DAILY Atorvastatin Calcium (Atorvastatin Calcium), 1 TAB PO DAILY, (Reported) Oxyzjuullze-Vdbckgkoxfnl-Oalny (Trelegy Ellipta 100-62.5-25 Mcg/INH), 1 PUFF INH DAILY, (Reported) Ibuprofen Micronized (Ibuprofen), 1 TAB PO TID, (Reported) Letrozole (Letrozole), 2.5 MG PO DAILY, (Reported) Losartan Potassium (Losartan Potassium), 1 TAB PO DAILY, (Reported) Pantoprazole Sodium Sesquihydr (Protonix), 40 MG PO DAILY Polyethylene Glycol 3350 (Miralax), 17 GM PO DAILY Prednisone (Prednisone), 20 MG PO BID, (Reported) Semaglutide (Ozempic), 0.25 MG SC QWEEKLY, (Reported) Senna (Senokot), 8.6 MG PO HS, (Reported) Miscellaneous Medications Albuterol Sulfate (Albuterol Sulfate), (Reported) Discharge Statement: "Patient was advised to return to the ER or call 911 if any headaches, dizziness, shortness of breath, chest pain, abdominal pain, bleeding, fevers, or worsening of medical condition. Patient was counseled about treatment plan, medications, possible side effects, patientverbalized understanding. All questions were answered to the best of my ability. This discharge took greater then 30 minutes in planning, reviewing documentation, counseling the patient, and discussing with other team members." ASSESSMENT ASSESSMENT Assessment Small Bowel Obstruction BECKY LIMON DO Jul 07, 2025 12:57
[2025-07-07 14:11] VITALS: BP 129/55; PULSE 62; RESP 16; TEMP 98.4; O2SAT 96
--- NOTE | 2025-07-07 15:19 | DVH ---
Procedure: XY SMALL BOWEL SERIES-W GASTROGRA Reason for study/Clinical History: SBO Comparison Study: None Technique: Single contrast small bowel series performed. FINDINGS/IMPRESSION: Initial cognos view of the abdomen and pelvis appears demonstrates no acute process. Enteric tube is i n the stomach. Contrast is identified within the colon by 3 hours no opacification of the colon. Dilated small garrison l appear to terminate in the right lower quadrant.. Findings are consistent with small-bowel obstruction.
--- NOTE | 2025-07-07 18:07 | DVHPN2 ---
Progress Note - Dictate Date Seen: Jul 07, 2025 Has the PT tested + for MRSA If YES, has PT been informed?: No Medical Necessity Reason Pt with a Central, PICC or Fol: No Subjective Patient was seen and evaluated in follow up. Patient has no new complaints at this time. Patient denies any cardiac symptoms. Patient is cardiac stable for discharge. vital signs Vital Sign Date Time Temp Pulse Resp B/P (MAP) Pulse Ox O2 Delivery O2 Flow Rate FiO2 07/07/25 09:00 99.2 58 16 103/55 (71) 97 99.2 07/07/25 08:00 Room Air* 0 21 Total Intake and Output 07/06/25 07/06/25 07/07/25 15:00 23:00 07:00 Intake Total 100 ml 480 ml 350 ml Balance 100 ml 480 ml 350 ml medications Current Medications Medications Dose Ordered Sig/Donaldo Route Start Time Stop Time Status Last Admin Dose Admin Diagnostic Test (Pha) 1 strip Q6HR 07/02/25 00:00 07/07/25 11:49 1 STRIP Insulin Human Regular Q6HR SC 07/02/25 00:00 07/07/25 11:49 3 UNITS Dextrose 50 ml UD PRN IV 07/01/25 22:00 Ondansetron HCl 4 mg Q4HPRN PRN IV 07/01/25 22:00 07/04/25 12:04 4 MG Hydralazine HCl 10 mg Q6HP PRN IV 07/01/25 22:00 07/04/25 17:33 10 MG Nitroglycerin 0.4 mg Q5MINP PRN SL 07/01/25 22:00 Hydromorphone HCl 0.4 mg Q4HPRN PRN IV 07/02/25 03:00 07/02/25 03:46 0.4 MG Pantoprazole Sodium 40 mg BID IV 07/02/25 10:00 07/07/25 10:28 40 MG Morphine Sulfate 2 mg Q4HPRN PRN IV 07/02/25 17:30 07/04/25 21:30 2 MG Heparin Sodium (Porcine) 5,000 units Q12HR SC 07/03/25 10:00 07/07/25 10:29 5,000 UNITS Piperacillin Sod/ Tazobactam Sod 100 ml @ 25 mls/hr Q8H IV 07/03/25 14:00 07/07/25 05:54 25 MLS/HR Sodium Chloride 1,000 ml @ 125 mls/hr Q8H IV 07/03/25 12:45 07/07/25 11:48 125 MLS/HR objective GENERAL: Alert and oriented x 3. No acute distress. EYES: PERRL, EOMI. Anicteric. HENT: Moist mucous membranes. LUNGS: Clear to auscultation bilaterally. CARDIOVASCULAR: Regular rate and rhythm. ABDOMEN: Soft, diffuse epigastric TTP. EXTREMITIES: No edema. NEUROLOGIC: No focal neurological deficits. SKIN: Warm, dry. laboratory and microbiology Laboratory Tests 07/07/25 05:21 Test 07/07/25 05:21 Range/Units Serum Glucose 166 H 74-106 mg/dL Problem List SBO. HTN. HLD. DM. UTI. Assessment/Plan Continued all current supportive medical care. Echocardiogram. Nitro SL. GI prophylactics. IV antibiotics as ordered. Additional plan as per the hospital course. Dietary Evaluation Review Comments: 1) If patient remains NPO > 7 days, consider EN/TPN to meet at least 75% estimated daily needs 2) Advance to 60g CCHO cardiac diet when medically feasible 3) Refer to outpatient RD/[facility] for weight management 4) Follow-up with gastroenterology 5) Continue to monitor I&O, labs, and skin integrity Expected Outcomes/Goals: 1) patient to receive nutritional support within 7 days of NPO status 2) GI symptoms to resolve 3) diet to advance 4) gradual wt loss 5) f/u in 3-5 days Plan discussed with: Patient RIO LINARES MD Jul 07, 2025 12:13
--- NOTE | 2025-07-08 09:20 | ECG ---
[facility] Test Date: 2025-07-07 Test Time: 10:26:22 Pat Name: IRIS CARRASCO Department: Room: 0248 A Gender: F Tub Rider: brenda : 1945 Requested By: CARLI STEINBERG Order Number: [id number] Reading MD: Jack Almodovar Measurements Intervals [place] Rate: 63 P: 52 IA: 137 QRS: 12 QRSD: 84 T: 67 QT: 401 QTc: 411 Interpretive Statements Sinus rhythm Low voltage, extremity and precordial leads Baseline wander in lead(s) V2 Electronically Signed On 07-14-2025 19:34:10 PDT by Jack Almodovar Please click the below link to view image of tracing.
== END 2025-07-07 15:51 | disposition home or self-care (01) | DRG 389 ==
LOC: ER 18:09 → OVERFLOW 21:54 → EAST 23:31
PROVIDERS: ADMIT Student in an Organized Health Care Education/Training Program; ATTEND Student in an Organized Health Care Education/Training Program
DX: K56.699 Other intestinal obstruction unspecified as to partial versus complete obstruction (principal); N39.0 Urinary tract infection, site not specified; E78.5 Hyperlipidemia, unspecified; J44.9 Chronic obstructive pulmonary disease, unspecified; E11.22 Type 2 diabetes mellitus with diabetic chronic kidney disease; I12.9 Hypertensive chronic kidney disease with stage 1 through stage 4 chronic kidney disease, or unspecified chronic kidney disease; N18.9 Chronic kidney disease, unspecified; K21.9 Gastro-esophageal reflux disease without esophagitis; Z90.49 Acquired absence of other specified parts of digestive tract; Z90.710 Acquired absence of both cervix and uterus; Z92.3 Personal history of irradiation; Z87.891 Personal history of nicotine dependence; Z86.73 Personal history of transient ischemic attack (TIA), and cerebral infarction without residual deficits; Z85.3 Personal history of malignant neoplasm of breast; Z83.3 Family history of diabetes mellitus; Z82.49 Family history of ischemic heart disease and other diseases of the circulatory system
CPT/HCPCS: 36415; 71045; 71260; 74018; 74177; 74250; 80048; 80053; 81001; 82962; 83690; 83880; 84484; 85025; 85379; 85610; 86850; 86900; 86901; 87040; 87081; 87086; 93005; 96374; 96375; G0378; J1815; J2405; J2470; J2543